=== PATIENT | male | born 1940 | race Two or more races ===

== ENCOUNTER 2016-10-08 16:07 | Emergency (ER) | payer OTHER ==
[~2016-10-08] VITALS: Ht 170.2 cm; Wt 108.9 kg
[2016-10-08 20:15] VITALS: BP 144/65
== END 2016-10-08 21:56 | disposition home or self-care (01) ==
LOC: ER 16:15
DX: T16.2XXA Foreign body in left ear, initial encounter (principal); I10 Essential (primary) hypertension; X58.XXXA Exposure to other specified factors, initial encounter; Y93.89 Activity, other specified; Y99.8 Other external cause status; Y92.89 Other specified places as the place of occurrence of the external cause
CPT/HCPCS: 69200

== ENCOUNTER 2020-01-24 12:52 | Inpatient (IN) | payer OTHER, MEDICAID ==
[~2020-01-24] VITALS: Ht 172.7 cm; Wt 101.0 kg
[2020-01-24] MEDS ORDERED: SODIUM CHLORIDE 0.9% 1,000 ML IV ONE (13:29)
[2020-01-24 14:19] LABS: Basophils # (auto) 0 10 ^3/uL (0-0.2); Basophils % (auto) 0.3 % (0.0-2.0); Eosinophils # (auto) 0 10 ^3/uL (0-0.8); Eosinophils % (auto) 0.5 % (0.0-7.0); Hematocrit 43.8 % (41.0-53.0); Hemoglobin 13.6 g/dL (13.5-17.5); Lymphocytes # (auto) 1.2 10 ^3/uL (0.4-5.4); Lymphocytes % (auto) 17.4 % (10.0-50.0); Mean Corpuscular Volume 99.9 fL (80.0-100.0); Monocytes # (auto) 0.7 10 ^3/uL (0-1.3); Monocytes % (auto) 10.6 % (0.0-12.0); Neutrophils # (auto) 4.9 10 ^3/uL (1.6-8.6); Neutrophils % (auto) 71.2 % (37.0-80.0); Platelet Count (auto) 116 10^3/uL (140-450); Red Blood Cells 4.38 10^6/uL (4.5-5.90); Red Cell Distribution Width 16.6 % (11.8-14.3); White Blood Cell 6.9 10^3/uL (4.4-10.8)
[2020-01-24 14:38] LABS: Albumin 3.7 g/dL (3.4-5.0); Calcium 9.6 mg/dL (8.5-10.1); Potassium 4.2 mmol/L (3.5-5.1)
[2020-01-24 14:43] LABS: BUN/Creatinine Ratio 21.9; Bilirubin, Total 1.4 mg/dL (0.2-1.0); Total Protein 7.1 g/dL (6.4-8.2)
[2020-01-24] MEDS ORDERED: SUCCINYLCHOLINE CHLORIDE 20 MG/ML 10ML VIAL IV ONE (14:50)
[2020-01-24] MEDS ORDERED: ETOMIDATE (2MG/ML) 20ML VIAL IV ONE (14:50)
[2020-01-24] MEDS ORDERED: MIDAZOLAM DRIP 50 mg/50mL 50 ML IV SCH (14:51)
[2020-01-24] MEDS ORDERED: MIDAZOLAM HCL 5 MG/ML-1ML VIAL ONE (14:53)
[2020-01-24] MEDS ORDERED: MIDAZOLAM DRIP 50 mg/50mL 50 ML IV ONE (14:58)
[2020-01-24 15:00] VITALS: BP 138/80
[2020-01-24] MEDS: MIDAZOLAM DRIP 50 mg/50mL 50 ML IV SCH (15:01)
[2020-01-24] MEDS ORDERED: FUROSEMIDE 40 MG/4 ML VIAL IV ONE ×2 (15:15→21:00)
[2020-01-24] MEDS ORDERED: MIDAZOLAM HCL 5 MG/ML-1ML VIAL IV ONE (15:15)
[2020-01-24] MEDS: fentaNYL Drip 2500mCg/250mlNS 250 ML IV SCH (16:31)
[2020-01-24 17:25] LABS: Urine WBC None Seen /hpf (0 - 3)
[2020-01-24] MEDS ORDERED: AMIODARONE HCL 150 MG in D5W 5% 100 ML IV ONE (17:45)
[2020-01-24 17:46] LABS: INR 1.34 (0.9-1.15); Partial Thromboplastin Time 30.5 sec (23.0-31.2)
[2020-01-24] MEDS ORDERED: AMIODARONE 450mg/250ml AE 250 ML IV SCH (17:49)
[2020-01-24 18:21] LABS: Urine Bacteria FEW /hpf (None Seen); Urine Blood 1+ /uL (Negative); Urine Mucus FEW (None Seen); Urine Specific Gravity 1.009 (1.001-1.035)
[2020-01-24 18:53] VITALS: BP 132/83
[2020-01-24] MEDS ORDERED: NOREPINEPHRINE 8 MG/250ML KIT 250 ML IV ONE (18:55)
[2020-01-24 18:59] VITALS: BP 132/83
[2020-01-24] MEDS ORDERED: NITROGLYCERIN 0.4 MG SL TAB SL PRN (19:00)
[2020-01-24] MEDS ORDERED: MORPHINE SULF INJ 2 MG/ML SYRINGE 1ML IV PRN (19:00)
[2020-01-24] MEDS: NOREPINEPHRINE 8 MG/250ML KIT 250 ML IV SCH (19:05)
[2020-01-24] MEDS ORDERED: ACETAMINOPHEN 325 MG TAB PO PRN (21:00)
[2020-01-24] MEDS ORDERED: MORPHINE SULFATE 4 MG/ML SYR/VIAL IV PRN (21:00)
[2020-01-24] MEDS ORDERED: ENOXAPARIN SOD 100 MG/1 ML SYRINGE SC ONE (21:00)
[2020-01-24] MEDS ORDERED: VANCOMYCIN PER PHARMACY 1,000 MG IV SCH (21:00)
[2020-01-24] MEDS ORDERED: VANCOMYCIN 1GM/250ML 250 ML IV ONE (21:15)
[2020-01-24] MEDS ORDERED: ACETAMINOPHEN 500 MG TAB PO PRN (21:15)
[2020-01-24] MEDS: FAMOTIDINE (10MG/ML) 2ML VL IV SCH (22:01)
[2020-01-24 22:27] LABS: Basophils # (auto) 0 10 ^3/uL (0-0.2); Basophils % (auto) 0.3 % (0.0-2.0); Eosinophils # (auto) 0 10 ^3/uL (0-0.8); Eosinophils % (auto) 0.1 % (0.0-7.0); Hematocrit 43.2 % (41.0-53.0); Hemoglobin 13.6 g/dL (13.5-17.5); Lymphocytes # (auto) 0.3 10 ^3/uL (0.4-5.4); Mean Corpuscular Hemoglobin 30.8 pg (28.0-32.0); Mean Corpuscular Hgb Conc. 31.5 g/dL (32.0-36.0); Mean Corpuscular Volume 97.8 fL (80.0-100.0); Monocytes # (auto) 0.7 10 ^3/uL (0-1.3); Monocytes % (auto) 8.1 % (0.0-12.0); Neutrophils # (auto) 7.7 10 ^3/uL (1.6-8.6); Neutrophils % (auto) 88.5 % (37.0-80.0); Platelet Count (auto) 118 10^3/uL (140-450); Red Blood Cells 4.42 10^6/uL (4.5-5.90); Red Cell Distribution Width 16.7 % (11.8-14.3); White Blood Cell 8.7 10^3/uL (4.4-10.8)
[2020-01-24 22:38] LABS: Albumin 2.8 g/dL (3.4-5.0); Calcium 9.2 mg/dL (8.5-10.1); Magnesium 2.2 mg/dL (1.6-2.6); Potassium 4.8 mmol/L (3.5-5.1)
[2020-01-24 22:40] VITALS: BP 100/59
[2020-01-24 22:40] LABS: Lactic Acid w/Reflex 2.8 mmol/L (0.4-2.0)
[2020-01-24 22:42] LABS: Bilirubin, Total 2.6 mg/dL (0.2-1.0); Total Protein 5.8 g/dL (6.4-8.2)
[2020-01-24 22:47] LABS: CRP High Sensitivity 1.43 mg/dL (< 0.3)
[2020-01-24 22:57] LABS: BUN/Creatinine Ratio 18.9
[2020-01-25] VITALS (10 sets, daily range): BP systolic 96–121; BP diastolic 53–68
[2020-01-25] MEDS: HYDROCORTISONE SOD SUCC 100 MG/2ML INJ VIAL IV SCH ×5 (00:29→23:53)
[2020-01-25] MEDS: AMIODARONE 450mg/250ml AE 250 ML IV SCH ×2 (00:30→03:25)
[2020-01-25] MEDS ORDERED: ACETAMINOPHEN 650 mg PER 20 mL UD ONE (00:44)
[2020-01-25] MEDS ORDERED: ACETAMINOPHEN 650 mg PER 20 mL UD GT ONE (01:00)
[2020-01-25] MEDS: PIPERACILLIN-TAZOB 3.375GM 3.375 GM in D5W 5% 100 ML IV SCH ×3 (06:19)
[2020-01-25] MEDS: FUROSEMIDE 40 MG/4 ML VIAL IV SCH ×2 (06:20→18:17)
[2020-01-25 09:12] LABS: Basophils # (auto) 0 10 ^3/uL (0-0.2); Basophils % (auto) 0.1 % (0.0-2.0); Eosinophils # (auto) 0 10 ^3/uL (0-0.8); Hemoglobin 13.3 g/dL (13.5-17.5); Lymphocytes # (auto) 0.8 10 ^3/uL (0.4-5.4); Lymphocytes % (auto) 5.9 % (10.0-50.0); Mean Corpuscular Hemoglobin 30.9 pg (28.0-32.0); Mean Corpuscular Hgb Conc. 31.8 g/dL (32.0-36.0); Mean Corpuscular Volume 97.4 fL (80.0-100.0); Monocytes # (auto) 0.9 10 ^3/uL (0-1.3); Monocytes % (auto) 6.5 % (0.0-12.0); Neutrophils # (auto) 11.7 10 ^3/uL (1.6-8.6); Neutrophils % (auto) 87.5 % (37.0-80.0); Platelet Count (auto) 110 10^3/uL (140-450); Red Blood Cells 4.31 10^6/uL (4.5-5.90); Red Cell Distribution Width 16.1 % (11.8-14.3); White Blood Cell 13.4 10^3/uL (4.4-10.8)
[2020-01-25 09:15] LABS: INR 1.93 (0.9-1.15); Partial Thromboplastin Time 34.7 sec (23.0-31.2)
[2020-01-25 09:24] LABS: Potassium 3.8 mmol/L (3.5-5.1)
[2020-01-25 09:38] LABS: Albumin 2.7 g/dL (3.4-5.0); BUN/Creatinine Ratio 16.5; Bilirubin, Total 3.9 mg/dL (0.2-1.0); CRP High Sensitivity 9.21 mg/dL (< 0.3); Calcium 9.3 mg/dL (8.5-10.1); Phosphorus 1.3 mg/dL (2.5-4.90); Total Protein 5.3 g/dL (6.4-8.2); Uric Acid 5.6 mg/dL (3.5-7.2)
[2020-01-25] MEDS ORDERED: ASCORBIC ACID 1,000 MG TAB PO SCH (10:00)
[2020-01-25] MEDS ORDERED: ZINC SULFATE 220mg CAP or TAB PO SCH (10:00)
[2020-01-25] MEDS ORDERED: CHOLECALCIFEROL (VITD3) 2,000 UNIT CAP PO SCH (10:00)
[2020-01-25] MEDS ORDERED: ENOXAPARIN SOD 120 MG/0.8 ML SYRINGE SC SCH (10:00)
[2020-01-25] MEDS: ENOXAPARIN SOD 120 MG/0.8 ML SYRINGE SC SCH ×2 (10:23→22:02)
[2020-01-25] MEDS: FAMOTIDINE (10MG/ML) 2ML VL IV SCH ×2 (10:23→22:02)
[2020-01-25] MEDS ORDERED: PIPERACILLIN-TAZOB 3.375GM 3.375 GM in D5W 5% 100 ML IV SCH ×4 (12:00)
[2020-01-25] MEDS: MIDAZOLAM DRIP 50 mg/50mL 50 ML IV SCH ×4 (15:15→21:48)
[2020-01-25] MEDS: fentaNYL Drip 2500mCg/250mlNS 250 ML IV SCH (15:58)
[2020-01-25] MEDS ORDERED: VANCOMYCIN 1GM/250ML 250 ML IV SCH (16:00)
[2020-01-25] MEDS: PIPERACILLIN-TAZOB 3.375GM 100 ML IV SCH ×2 (18:17→23:54)
[2020-01-25] MEDS: NOREPINEPHRINE 8 MG/250ML KIT 250 ML IV SCH (18:50)
[2020-01-26] VITALS (12 sets, daily range): BP systolic 88–132; BP diastolic 61–86
[2020-01-26] MEDS: MIDAZOLAM DRIP 50 mg/50mL 50 ML IV SCH ×6 (02:36→22:15)
[2020-01-26] MEDS: NOREPINEPHRINE 8 MG/250ML KIT 250 ML IV SCH (04:32)
[2020-01-26 05:23] LABS: Basophils # (auto) 0 10 ^3/uL (0-0.2); Basophils % (auto) 0.2 % (0.0-2.0); Eosinophils # (auto) 0 10 ^3/uL (0-0.8); Hematocrit 42.7 % (41.0-53.0); Hemoglobin 13.8 g/dL (13.5-17.5); Lymphocytes # (auto) 0.8 10 ^3/uL (0.4-5.4); Lymphocytes % (auto) 4.7 % (10.0-50.0); Mean Corpuscular Hemoglobin 31.1 pg (28.0-32.0); Mean Corpuscular Hgb Conc. 32.3 g/dL (32.0-36.0); Mean Corpuscular Volume 96.5 fL (80.0-100.0); Monocytes % (auto) 5.8 % (0.0-12.0); Neutrophils % (auto) 89.3 % (37.0-80.0); Platelet Count (auto) 119 10^3/uL (140-450); Red Blood Cells 4.42 10^6/uL (4.5-5.90); Red Cell Distribution Width 16.9 % (11.8-14.3); White Blood Cell 16.8 10^3/uL (4.4-10.8)
[2020-01-26 05:33] LABS: BUN/Creatinine Ratio 17.8; Calcium 9.3 mg/dL (8.5-10.1); Magnesium 1.9 mg/dL (1.6-2.6); Potassium 3.3 mmol/L (3.5-5.1)
[2020-01-26] MEDS: PIPERACILLIN-TAZOB 3.375GM 100 ML IV SCH ×3 (05:52→17:34)
[2020-01-26] MEDS: HYDROCORTISONE SOD SUCC 100 MG/2ML INJ VIAL IV SCH ×3 (05:52→17:58)
[2020-01-26] MEDS: FUROSEMIDE 40 MG/4 ML VIAL IV SCH ×3 (05:52→21:43)
[2020-01-26] MEDS: AMIODARONE 450mg/250ml AE 250 ML IV SCH ×2 (06:03→21:42)
[2020-01-26] MEDS: FAMOTIDINE (10MG/ML) 2ML VL IV SCH ×2 (09:05→21:43)
[2020-01-26] MEDS: POTASSIUM CHL 20MEQ/100ML 100 ML IV SCH ×2 (09:05→10:19)
[2020-01-26] MEDS: ENOXAPARIN SOD 120 MG/0.8 ML SYRINGE SC SCH ×2 (09:05→21:43)
[2020-01-26] MEDS: fentaNYL Drip 2500mCg/250mlNS 250 ML IV SCH (10:20)
[2020-01-26] MEDS ORDERED: EPINEPHrine HCL 1 MG/10 ML SYRG IV ONE (13:32)
[2020-01-26] MEDS ORDERED: SODIUM BICARBONATE 8.4% INJ 50ML SYRINGE IV ONE (13:32)
[2020-01-26] MEDS: VANCOMYCIN 1GM/250ML 250 ML IV SCH (16:16)
[2020-01-27] VITALS (105 sets, daily range): BP systolic 82–146; BP diastolic 45–86
[2020-01-27] MEDS: PIPERACILLIN-TAZOB 3.375GM 100 ML IV SCH ×2 (00:21→05:11)
[2020-01-27] MEDS: HYDROCORTISONE SOD SUCC 100 MG/2ML INJ VIAL IV SCH ×4 (00:21→17:36)
[2020-01-27] MEDS: MIDAZOLAM DRIP 50 mg/50mL 50 ML IV SCH ×4 (02:55→20:00)
[2020-01-27 03:22] LABS: Basophils # (auto) 0.1 10 ^3/uL (0-0.2); Basophils % (auto) 0.4 % (0.0-2.0); Eosinophils # (auto) 0 10 ^3/uL (0-0.8); Hematocrit 41.1 % (41.0-53.0); Hemoglobin 13.5 g/dL (13.5-17.5); Lymphocytes # (auto) 0.8 10 ^3/uL (0.4-5.4); Lymphocytes % (auto) 4.7 % (10.0-50.0); Mean Corpuscular Hemoglobin 31.2 pg (28.0-32.0); Mean Corpuscular Hgb Conc. 32.9 g/dL (32.0-36.0); Mean Corpuscular Volume 94.7 fL (80.0-100.0); Monocytes # (auto) 0.7 10 ^3/uL (0-1.3); Monocytes % (auto) 4.3 % (0.0-12.0); Neutrophils # (auto) 15.2 10 ^3/uL (1.6-8.6); Neutrophils % (auto) 90.6 % (37.0-80.0); Platelet Count (auto) 102 10^3/uL (140-450); Red Blood Cells 4.35 10^6/uL (4.5-5.90); White Blood Cell 16.8 10^3/uL (4.4-10.8)
[2020-01-27 03:45] LABS: BUN/Creatinine Ratio 17.1; Calcium 9.1 mg/dL (8.5-10.1); Potassium 3.6 mmol/L (3.5-5.1)
[2020-01-27] MEDS: fentaNYL Drip 2500mCg/250mlNS 250 ML IV SCH (05:10)
[2020-01-27] MEDS: FUROSEMIDE 40 MG/4 ML VIAL IV SCH ×3 (05:13→22:00)
[2020-01-27] MEDS: FAMOTIDINE (10MG/ML) 2ML VL IV SCH (10:06)
[2020-01-27] MEDS: ENOXAPARIN SOD 120 MG/0.8 ML SYRINGE SC SCH (10:06)
[2020-01-27] MEDS: MEROPENEM 1GM IVPB 100 ML IV SCH (11:46)
[2020-01-27] MEDS: AMIODARONE 450mg/250ml AE 250 ML IV SCH (12:06)
[2020-01-27] MEDS: VANCOMYCIN 1GM/250ML 250 ML IV SCH (17:22)
[2020-01-28] VITALS (79 sets, daily range): BP systolic 91–144; BP diastolic 55–84
[2020-01-28] MEDS: fentaNYL Drip 2500mCg/250mlNS 250 ML IV SCH (00:20)
[2020-01-28] MEDS: NOREPINEPHRINE 8 MG/250ML KIT 250 ML IV SCH ×2 (01:00→18:48)
[2020-01-28] MEDS: AMIODARONE 450mg/250ml AE 250 ML IV SCH (02:49)
[2020-01-28 05:25] LABS: Basophils # (auto) 0 10 ^3/uL (0-0.2); Eosinophils # (auto) 0 10 ^3/uL (0-0.8); Eosinophils % (auto) 0.1 % (0.0-7.0); Hematocrit 39.9 % (41.0-53.0); Hemoglobin 12.8 g/dL (13.5-17.5); Lymphocytes # (auto) 0.6 10 ^3/uL (0.4-5.4); Lymphocytes % (auto) 4.7 % (10.0-50.0); Mean Corpuscular Hemoglobin 30.6 pg (28.0-32.0); Mean Corpuscular Hgb Conc. 32.1 g/dL (32.0-36.0); Mean Corpuscular Volume 95.5 fL (80.0-100.0); Monocytes # (auto) 1.1 10 ^3/uL (0-1.3); Monocytes % (auto) 8.6 % (0.0-12.0); Neutrophils # (auto) 10.8 10 ^3/uL (1.6-8.6); Neutrophils % (auto) 86.6 % (37.0-80.0); Nucleated Red Blood Cells % 0.1 %; Platelet Count (auto) 95 10^3/uL (140-450); Red Blood Cells 4.18 10^6/uL (4.5-5.90); Red Cell Distribution Width 17.1 % (11.8-14.3); White Blood Cell 12.5 10^3/uL (4.4-10.8)
[2020-01-28 05:44] LABS: Calcium 8.5 mg/dL (8.5-10.1); Potassium 3.5 mmol/L (3.5-5.1)
[2020-01-28 05:50] LABS: BUN/Creatinine Ratio 18.2; Bilirubin, Total 1.6 mg/dL (0.2-1.0); Total Protein 5.2 g/dL (6.4-8.2)
[2020-01-28] MEDS: HYDROCORTISONE SOD SUCC 100 MG/2ML INJ VIAL IV SCH ×4 (06:13→17:16)
[2020-01-28] MEDS: FUROSEMIDE 40 MG/4 ML VIAL IV SCH ×3 (06:13→22:00)
[2020-01-28] MEDS: FAMOTIDINE (10MG/ML) 2ML VL IV SCH (08:11)
[2020-01-28] MEDS: MEROPENEM 1GM IVPB 100 ML IV SCH ×3 (10:02→22:54)
[2020-01-28] MEDS: VANCOMYCIN 750mg/250ml 250 ML IV SCH (22:00)
[2020-01-29] VITALS (77 sets, daily range): BP systolic 112–151; BP diastolic 47–76
[2020-01-29] MEDS: HYDROCORTISONE SOD SUCC 100 MG/2ML INJ VIAL IV SCH ×4 (00:36→17:09)
[2020-01-29 04:30] LABS: Basophils # (auto) 0 10 ^3/uL (0-0.2); Basophils % (auto) 0.2 % (0.0-2.0); Eosinophils # (auto) 0 10 ^3/uL (0-0.8); Hemoglobin 12.5 g/dL (13.5-17.5); Lymphocytes # (auto) 0.6 10 ^3/uL (0.4-5.4); Lymphocytes % (auto) 5.9 % (10.0-50.0); Mean Corpuscular Hgb Conc. 32.8 g/dL (32.0-36.0); Mean Corpuscular Volume 94.4 fL (80.0-100.0); Monocytes % (auto) 10.9 % (0.0-12.0); Neutrophils # (auto) 7.7 10 ^3/uL (1.6-8.6); Nucleated Red Blood Cells % 0.1 %; Platelet Count (auto) 92 10^3/uL (140-450); Red Blood Cells 4.03 10^6/uL (4.5-5.90); Red Cell Distribution Width 16.6 % (11.8-14.3); White Blood Cell 9.3 10^3/uL (4.4-10.8)
[2020-01-29 04:48] LABS: BUN/Creatinine Ratio 20.4; Calcium 8.2 mg/dL (8.5-10.1); Magnesium 2.1 mg/dL (1.6-2.6); Potassium 3.2 mmol/L (3.5-5.1)
[2020-01-29] MEDS: FUROSEMIDE 40 MG/4 ML VIAL IV SCH (06:00)
[2020-01-29] MEDS ORDERED: POTASSIUM CHL 20MEQ/100ML 100 ML IV ONE (07:52)
[2020-01-29] MEDS: POTASSIUM CHL 20MEQ/100ML 100 ML IV SCH ×2 (08:01→10:12)
[2020-01-29] MEDS: FAMOTIDINE (10MG/ML) 2ML VL IV SCH (09:17)
[2020-01-29] MEDS: MEROPENEM 1GM IVPB 100 ML IV SCH ×2 (11:28→23:48)
[2020-01-29] MEDS: ALBUMIN 25% 100 ML IV SCH ×2 (12:24→13:20)
[2020-01-29] MEDS: MIDAZOLAM DRIP 50 mg/50mL 50 ML IV SCH (15:12)
[2020-01-29] MEDS: fentaNYL Drip 2500mCg/250mlNS 250 ML IV SCH (15:58)
[2020-01-29] MEDS: NOREPINEPHRINE 8 MG/250ML KIT 250 ML IV SCH (18:48)
[2020-01-29] MEDS: VANCOMYCIN 750mg/250ml 250 ML IV SCH (22:08)
[2020-01-30] VITALS (73 sets, daily range): BP systolic 103–139; BP diastolic 43–72
[2020-01-30] MEDS: HYDROCORTISONE SOD SUCC 100 MG/2ML INJ VIAL IV SCH ×3 (01:17→11:38)
[2020-01-30 03:47] LABS: Basophils # (auto) 0 10 ^3/uL (0-0.2); Basophils % (auto) 0.1 % (0.0-2.0); Eosinophils # (auto) 0 10 ^3/uL (0-0.8); Eosinophils % (auto) 0.1 % (0.0-7.0); Hematocrit 30.2 % (41.0-53.0); Hemoglobin 10.2 g/dL (13.5-17.5); Lymphocytes # (auto) 0.4 10 ^3/uL (0.4-5.4); Lymphocytes % (auto) 5.7 % (10.0-50.0); Mean Corpuscular Hemoglobin 31.8 pg (28.0-32.0); Mean Corpuscular Hgb Conc. 33.8 g/dL (32.0-36.0); Mean Corpuscular Volume 94.1 fL (80.0-100.0); Monocytes # (auto) 0.9 10 ^3/uL (0-1.3); Monocytes % (auto) 13.8 % (0.0-12.0); Neutrophils # (auto) 5.4 10 ^3/uL (1.6-8.6); Neutrophils % (auto) 80.3 % (37.0-80.0); Platelet Count (auto) 68 10^3/uL (140-450); Red Blood Cells 3.21 10^6/uL (4.5-5.90); Red Cell Distribution Width 16.3 % (11.8-14.3); White Blood Cell 6.8 10^3/uL (4.4-10.8)
[2020-01-30 04:09] LABS: BUN/Creatinine Ratio 21.4; Calcium 8.2 mg/dL (8.5-10.1); Magnesium 2.1 mg/dL (1.6-2.6); Potassium 3.5 mmol/L (3.5-5.1)
[2020-01-30] MEDS: FAMOTIDINE (10MG/ML) 2ML VL IV SCH (09:26)
[2020-01-30] MEDS: MEROPENEM 500MG IVPB 50 ML IV SCH ×2 (11:22→23:00)
[2020-01-30] MEDS: SODIUM CHLORIDE 0.9% 1,000 ML IV SCH ×2 (11:37→23:47)
[2020-01-30] MEDS: DOXYCYCLINE 100MG/250ML 250 ML IV SCH (12:00)
[2020-01-30] MEDS ORDERED: Nepro With Carb Steady 1 Liter Bottle GT SCH (14:00)
[2020-01-30] MEDS: MIDAZOLAM DRIP 50 mg/50mL 50 ML IV SCH (15:12)
[2020-01-30] MEDS: fentaNYL Drip 2500mCg/250mlNS 250 ML IV SCH (15:58)
[2020-01-30] MEDS: NOREPINEPHRINE 8 MG/250ML KIT 250 ML IV SCH (18:48)
[2020-01-31] VITALS (67 sets, daily range): BP systolic 109–166; BP diastolic 56–88
[2020-01-31 04:19] LABS: Potassium 3.1 mmol/L (3.5-5.1)
[2020-01-31 04:20] LABS: BUN/Creatinine Ratio 23.9; Calcium 8.1 mg/dL (8.5-10.1)
[2020-01-31] MEDS ORDERED: POTASSIUM CHL 20MEQ/100ML 100 ML IV ONE (08:30)
[2020-01-31] MEDS: HYDROCORTISONE SOD SUCC 100 MG/2ML INJ VIAL IV SCH (09:56)
[2020-01-31] MEDS: FAMOTIDINE (10MG/ML) 2ML VL IV SCH (09:56)
[2020-01-31] MEDS ORDERED: Glucerna 1.2 Cal 1Liter BOTTLE GT SCH (11:45)
[2020-01-31] MEDS: DOXYCYCLINE 100MG/250ML 250 ML IV SCH ×3 (12:00→14:00)
[2020-01-31] MEDS: SODIUM CHLORIDE 0.9% 1,000 ML IV SCH (12:15)
[2020-01-31] MEDS: MEROPENEM 500MG IVPB 50 ML IV SCH ×2 (12:32→23:00)
[2020-01-31] MEDS: MIDAZOLAM DRIP 50 mg/50mL 50 ML IV SCH ×2 (13:11→15:12)
[2020-01-31 14:55] LABS: Basophils # (auto) 0 10 ^3/uL (0-0.2); Basophils % (auto) 0.1 % (0.0-2.0); Eosinophils # (auto) 0 10 ^3/uL (0-0.8); Eosinophils % (auto) 0.1 % (0.0-7.0); Hematocrit 39.4 % (41.0-53.0); Hemoglobin 12.8 g/dL (13.5-17.5); Lymphocytes # (auto) 0.5 10 ^3/uL (0.4-5.4); Lymphocytes % (auto) 5.6 % (10.0-50.0); Mean Corpuscular Hemoglobin 30.5 pg (28.0-32.0); Mean Corpuscular Hgb Conc. 32.4 g/dL (32.0-36.0); Mean Corpuscular Volume 94.2 fL (80.0-100.0); Monocytes % (auto) 10.5 % (0.0-12.0); Neutrophils # (auto) 8.1 10 ^3/uL (1.6-8.6); Neutrophils % (auto) 83.7 % (37.0-80.0); Platelet Count (auto) 108 10^3/uL (140-450); Red Blood Cells 4.18 10^6/uL (4.5-5.90); Red Cell Distribution Width 16.2 % (11.8-14.3); White Blood Cell 9.7 10^3/uL (4.4-10.8)
[2020-01-31] MEDS: fentaNYL Drip 2500mCg/250mlNS 250 ML IV SCH (15:58)
[2020-02-01] VITALS (46 sets, daily range): BP systolic 107–168; BP diastolic 55–92
[2020-02-01] MEDS: SODIUM CHLORIDE 0.9% 1,000 ML IV SCH ×2 (00:45→13:15)
[2020-02-01] MEDS: DOXYCYCLINE 100MG/250ML 250 ML IV SCH ×2 (02:05→14:00)
[2020-02-01 04:10] LABS: Basophils # (auto) 0 10 ^3/uL (0-0.2); Basophils % (auto) 0.1 % (0.0-2.0); Eosinophils # (auto) 0.1 10 ^3/uL (0-0.8); Eosinophils % (auto) 1.3 % (0.0-7.0); Hematocrit 36.9 % (41.0-53.0); Hemoglobin 12.3 g/dL (13.5-17.5); Lymphocytes # (auto) 0.7 10 ^3/uL (0.4-5.4); Mean Corpuscular Hemoglobin 31.4 pg (28.0-32.0); Mean Corpuscular Hgb Conc. 33.3 g/dL (32.0-36.0); Mean Corpuscular Volume 94.3 fL (80.0-100.0); Monocytes % (auto) 10.6 % (0.0-12.0); Neutrophils # (auto) 7.4 10 ^3/uL (1.6-8.6); Platelet Count (auto) 103 10^3/uL (140-450); Red Blood Cells 3.92 10^6/uL (4.5-5.90); Red Cell Distribution Width 16.7 % (11.8-14.3); White Blood Cell 9.3 10^3/uL (4.4-10.8)
[2020-02-01 04:26] LABS: BUN/Creatinine Ratio 24.2; Calcium 7.9 mg/dL (8.5-10.1); Magnesium 2.4 mg/dL (1.6-2.6)
[2020-02-01] MEDS: HYDROCORTISONE SOD SUCC 100 MG/2ML INJ VIAL IV SCH (10:00)
[2020-02-01] MEDS: ENOXAPARIN SOD 100 MG/1 ML SYRINGE SC SCH (10:00)
[2020-02-01] MEDS: FAMOTIDINE (10MG/ML) 2ML VL IV SCH (10:00)
[2020-02-01] MEDS ORDERED: POTASSIUM CHL 20MEQ/100ML 100 ML IV ONE (10:30)
[2020-02-01] MEDS: MEROPENEM 500MG IVPB 50 ML IV SCH ×2 (11:00→23:24)
[2020-02-01] MEDS: LORazepam 2MG/ML-1ML VIAL IV PRN (16:24)
[2020-02-02] VITALS (61 sets, daily range): BP systolic 119–177; BP diastolic 64–111
[2020-02-02] MEDS: SODIUM CHLORIDE 0.9% 1,000 ML IV SCH ×2 (01:45→12:13)
[2020-02-02] MEDS: DOXYCYCLINE 100MG/250ML 250 ML IV SCH ×2 (02:12→14:21)
[2020-02-02 04:33] LABS: Basophils # (auto) 0 10 ^3/uL (0-0.2); Basophils % (auto) 0.1 % (0.0-2.0); Eosinophils # (auto) 0 10 ^3/uL (0-0.8); Hematocrit 39.1 % (41.0-53.0); Hemoglobin 12.6 g/dL (13.5-17.5); Lymphocytes # (auto) 0.8 10 ^3/uL (0.4-5.4); Lymphocytes % (auto) 5.6 % (10.0-50.0); Mean Corpuscular Hemoglobin 30.6 pg (28.0-32.0); Mean Corpuscular Hgb Conc. 32.2 g/dL (32.0-36.0); Mean Corpuscular Volume 94.9 fL (80.0-100.0); Monocytes # (auto) 1.3 10 ^3/uL (0-1.3); Monocytes % (auto) 8.5 % (0.0-12.0); Neutrophils # (auto) 12.8 10 ^3/uL (1.6-8.6); Neutrophils % (auto) 85.8 % (37.0-80.0); Nucleated Red Blood Cells % 0.1 %; Platelet Count (auto) 128 10^3/uL (140-450); Red Blood Cells 4.12 10^6/uL (4.5-5.90); Red Cell Distribution Width 16.7 % (11.8-14.3); White Blood Cell 14.9 10^3/uL (4.4-10.8)
[2020-02-02 04:52] LABS: Calcium 8.3 mg/dL (8.5-10.1); Magnesium 2.3 mg/dL (1.6-2.6); Potassium 3.3 mmol/L (3.5-5.1)
[2020-02-02 04:53] LABS: BUN/Creatinine Ratio 24.5
[2020-02-02] MEDS: NOREPINEPHRINE 8 MG/250ML KIT 250 ML IV SCH ×3 (08:57→18:15)
[2020-02-02] MEDS: MIDAZOLAM DRIP 50 mg/50mL 50 ML IV SCH ×2 (08:58→14:26)
[2020-02-02] MEDS: fentaNYL Drip 2500mCg/250mlNS 250 ML IV SCH ×2 (08:59→14:27)
[2020-02-02] MEDS: ENOXAPARIN SOD 100 MG/1 ML SYRINGE SC SCH (10:43)
[2020-02-02] MEDS: FAMOTIDINE (10MG/ML) 2ML VL IV SCH (10:43)
[2020-02-02] MEDS ORDERED: AMIODARONE HCL 150 MG in D5W 5% 100 ML IV ONE (10:45)
[2020-02-02] MEDS ORDERED: POTASSIUM CHL 20MEQ/100ML 100 ML IV ONE (10:45)
[2020-02-02] MEDS ORDERED: AMIODARONE 450mg/250ml AE 250 ML IV SCH (10:46)
[2020-02-02] MEDS: MEROPENEM 500MG IVPB 50 ML IV SCH ×2 (11:14→23:17)
[2020-02-02] MEDS: AMIODARONE 450mg/250ml AE 250 ML IV SCH (18:15)
[2020-02-02] MEDS ORDERED: DOXYCYCLINE 100MG/250ML 250 ML IV ONE (23:22)
[2020-02-03] VITALS (80 sets, daily range): BP systolic 102–151; BP diastolic 47–93
[2020-02-03] MEDS: DOXYCYCLINE 100MG/250ML 250 ML IV SCH ×2 (02:20→13:40)
[2020-02-03 04:37] LABS: BUN/Creatinine Ratio 24.4; Calcium 8.2 mg/dL (8.5-10.1); Potassium 3.5 mmol/L (3.5-5.1)
[2020-02-03] MEDS: AMIODARONE 450mg/250ml AE 250 ML IV SCH ×2 (09:43→22:46)
[2020-02-03] MEDS: FAMOTIDINE (10MG/ML) 2ML VL IV SCH (09:43)
[2020-02-03] MEDS: SODIUM CHLORIDE 0.9% 1,000 ML IV SCH ×3 (09:43→16:06)
[2020-02-03] MEDS: ENOXAPARIN SOD 100 MG/1 ML SYRINGE SC SCH (10:00)
[2020-02-03] MEDS: MEROPENEM 500MG IVPB 50 ML IV SCH ×2 (11:00→22:26)
[2020-02-03] MEDS: fentaNYL Drip 2500mCg/250mlNS 250 ML IV SCH (15:09)
[2020-02-03] MEDS: MIDAZOLAM DRIP 50 mg/50mL 50 ML IV SCH (15:12)
[2020-02-03] MEDS ORDERED: SODIUM CHL 0.9% 1000 ML BAG XX ONE (15:45)
[2020-02-03] MEDS ORDERED: MIDAZOLAM HCL 1MG/1ML-2 ML VIAL ONE (16:25)
[2020-02-03] MEDS ORDERED: MIDAZOLAM HCL 1MG/1ML-2 ML VIAL IV ONE (16:30)
[2020-02-03] MEDS: NOREPINEPHRINE 8 MG/250ML KIT 250 ML IV SCH (18:31)
[2020-02-04] VITALS (107 sets, daily range): BP systolic 91–149; BP diastolic 32–79
[2020-02-04] MEDS: DOXYCYCLINE 100MG/250ML 250 ML IV SCH ×2 (02:00→14:06)
[2020-02-04 05:24] LABS: BUN/Creatinine Ratio 23.4; Calcium 8.2 mg/dL (8.5-10.1); Potassium 3.7 mmol/L (3.5-5.1)
[2020-02-04] MEDS: FAMOTIDINE (10MG/ML) 2ML VL IV SCH (10:39)
[2020-02-04] MEDS: ENOXAPARIN SOD 100 MG/1 ML SYRINGE SC SCH (10:40)
[2020-02-04] MEDS: MEROPENEM 500MG IVPB 50 ML IV SCH ×2 (10:40→23:02)
[2020-02-04] MEDS: AMIODARONE 450mg/250ml AE 250 ML IV SCH (14:06)
[2020-02-04 14:53] LABS: INR 1.31 (0.9-1.15); Partial Thromboplastin Time 36.3 sec (23.0-31.2)
[2020-02-04] MEDS: MIDAZOLAM DRIP 50 mg/50mL 50 ML IV SCH (15:12)
[2020-02-04] MEDS: fentaNYL Drip 2500mCg/250mlNS 250 ML IV SCH (15:27)
[2020-02-04] MEDS ORDERED: NALOXONE HCL 0.4 MG/ML VIAL ONE (15:34)
[2020-02-04] MEDS ORDERED: FLUMAZENIL 0.1 MG/ML INJ 10ML MDV IV ONE (15:34)
[2020-02-04] MEDS ORDERED: LIDOCAINE 2%HCL (LOCAL ANESTH.) INJ 20ML MDV ONE (15:34)
[2020-02-04] MEDS ORDERED: MIDAZOLAM HCL 5 MG/ML-1ML VIAL ONE (15:35)
[2020-02-04] MEDS ORDERED: EPINEPHrine HCL 1 MG/1 ML AMP ONE (15:35)
[2020-02-04] MEDS ORDERED: LIDOCAINE HCL 2% TOP JELLY 5ML TOP ONE (15:35)
[2020-02-04] MEDS ORDERED: SODIUM CHLORIDE LOCK 40 ML ONE (15:35)
[2020-02-04] MEDS ORDERED: diphenhdrAMINE HCL 50 MG/1 ML VL ONE (15:36)
[2020-02-04] MEDS ORDERED: fentaNYL CITRATE 100 MCG/2 ML VL ONE (15:36)
[2020-02-04] MEDS ORDERED: GLYCOPYRROLATE 0.2 MG/ML 1ML VIAL ONE (15:36)
[2020-02-04] MEDS ORDERED: ACETYLCYSTEINE 10 %(100MG/ML) SOL 4ML NEB ONE (15:45)
[2020-02-04] MEDS: SODIUM CHLORIDE 0.9% 1,000 ML IV SCH (16:00)
[2020-02-04] MEDS ORDERED: ACETYLCYSTEINE 20%(200MG/ML) SOL 4ML ONE (16:02)
[2020-02-04] MEDS: NOREPINEPHRINE 8 MG/250ML KIT 250 ML IV SCH (18:07)
[2020-02-05] VITALS (92 sets, daily range): BP systolic 99–152; BP diastolic 52–90
[2020-02-05] MEDS: DOXYCYCLINE 100MG/250ML 250 ML IV SCH ×2 (01:55→14:50)
[2020-02-05 04:20] LABS: Basophils # (auto) 0 10 ^3/uL (0-0.2); Basophils % (auto) 0.1 % (0.0-2.0); Eosinophils # (auto) 0.1 10 ^3/uL (0-0.8); Eosinophils % (auto) 0.9 % (0.0-7.0); Hematocrit 29.4 % (41.0-53.0); Hemoglobin 9.4 g/dL (13.5-17.5); Lymphocytes # (auto) 0.9 10 ^3/uL (0.4-5.4); Lymphocytes % (auto) 6.2 % (10.0-50.0); Mean Corpuscular Hemoglobin 30.7 pg (28.0-32.0); Mean Corpuscular Volume 95.8 fL (80.0-100.0); Monocytes # (auto) 1.5 10 ^3/uL (0-1.3); Monocytes % (auto) 10.2 % (0.0-12.0); Neutrophils # (auto) 11.7 10 ^3/uL (1.6-8.6); Neutrophils % (auto) 82.6 % (37.0-80.0); Platelet Count (auto) 114 10^3/uL (140-450); Red Blood Cells 3.07 10^6/uL (4.5-5.90); Red Cell Distribution Width 16.3 % (11.8-14.3); White Blood Cell 14.2 10^3/uL (4.4-10.8)
[2020-02-05 04:40] LABS: BUN/Creatinine Ratio 26.1; Calcium 8.3 mg/dL (8.5-10.1); Magnesium 2.1 mg/dL (1.6-2.6); Potassium 3.5 mmol/L (3.5-5.1)
[2020-02-05] MEDS ORDERED: SODIUM CHL 0.9% 1000 ML BAG XX ONE (06:30)
[2020-02-05] MEDS: AMIODARONE 450mg/250ml AE 250 ML IV SCH ×2 (06:35→21:06)
[2020-02-05] MEDS ORDERED: HEPARIN SODIUM (PORCINE) 5000 UNITS/ML 1ML VIAL ONE (06:40)
[2020-02-05] MEDS ORDERED: HEPARIN 1,000 UNITS/ml 1ML VIAL ONE (06:44)
[2020-02-05] MEDS: MEROPENEM 500MG IVPB 50 ML IV SCH ×2 (10:16→22:45)
[2020-02-05] MEDS: FAMOTIDINE (10MG/ML) 2ML VL IV SCH (10:17)
[2020-02-05] MEDS: D5W/SOD CHL 0.45% 1,000 ML IV SCH (10:18)
[2020-02-05] MEDS ORDERED: EPINEPHrine HCL 0.5 ML NEB ONE (12:12)
[2020-02-05] MEDS ORDERED: methylPREDNISolone SOD SUCC 40 MG/ML VL ONE (12:18)
[2020-02-05] MEDS ORDERED: DexAMETHasone SOD PHOS 4 MG/1ML SDV INJ ONE (12:45)
[2020-02-05] MEDS: LORazepam 2MG/ML-1ML VIAL IV PRN ×2 (14:30→18:37)
[2020-02-05] MEDS ORDERED: DexAMETHasone SOD PHOS 10MG/1ML VIAL INJ IV ONE (14:30)
[2020-02-05] MEDS ORDERED: EPINEPHrine HCL 0.5 ML NEB NEB ONE (14:30)
[2020-02-05] MEDS ORDERED: methylPREDNISolone SOD SUCC 40 MG/ML VL IV ONE (14:30)
[2020-02-05] MEDS: MIDAZOLAM DRIP 50 mg/50mL 50 ML IV SCH (14:48)
[2020-02-05] MEDS: fentaNYL Drip 2500mCg/250mlNS 250 ML IV SCH (15:58)
[2020-02-05] MEDS: NOREPINEPHRINE 8 MG/250ML KIT 250 ML IV SCH (18:08)
[2020-02-05] MEDS ORDERED: EPOETIN ALFA 4,000 UNIT/ML VL SC ONE (21:00)
[2020-02-06] VITALS (50 sets, daily range): BP systolic 93–143; BP diastolic 49–81
[2020-02-06] MEDS: DOXYCYCLINE 100MG/250ML 250 ML IV SCH ×2 (02:19→14:00)
[2020-02-06] MEDS: D5W/SOD CHL 0.45% 1,000 ML IV SCH ×2 (04:15→14:17)
[2020-02-06 06:10] LABS: Basophils # (auto) 0 10 ^3/uL (0-0.2); Basophils % (auto) 0.1 % (0.0-2.0); Eosinophils # (auto) 0 10 ^3/uL (0-0.8); Hematocrit 29.7 % (41.0-53.0); Hemoglobin 9.6 g/dL (13.5-17.5); Lymphocytes # (auto) 0.5 10 ^3/uL (0.4-5.4); Lymphocytes % (auto) 4.3 % (10.0-50.0); Mean Corpuscular Hgb Conc. 32.1 g/dL (32.0-36.0); Mean Corpuscular Volume 96.7 fL (80.0-100.0); Monocytes % (auto) 8.3 % (0.0-12.0); Neutrophils # (auto) 10.5 10 ^3/uL (1.6-8.6); Neutrophils % (auto) 87.3 % (37.0-80.0); Platelet Count (auto) 119 10^3/uL (140-450); Red Blood Cells 3.08 10^6/uL (4.5-5.90); Red Cell Distribution Width 16.5 % (11.8-14.3); White Blood Cell 12.1 10^3/uL (4.4-10.8)
[2020-02-06 06:27] LABS: BUN/Creatinine Ratio 25.1; Calcium 8.4 mg/dL (8.5-10.1); Magnesium 2.3 mg/dL (1.6-2.6); Potassium 4.4 mmol/L (3.5-5.1)
[2020-02-06] MEDS: AMIODARONE 450mg/250ml AE 250 ML IV SCH (12:10)
[2020-02-06] MEDS: FAMOTIDINE (10MG/ML) 2ML VL IV SCH (12:10)
[2020-02-06] MEDS: MEROPENEM 500MG IVPB 50 ML IV SCH ×2 (12:11→22:43)
[2020-02-06] MEDS: MIDAZOLAM DRIP 50 mg/50mL 50 ML IV SCH (15:12)
[2020-02-06] MEDS: NOREPINEPHRINE 8 MG/250ML KIT 250 ML IV SCH (18:33)
[2020-02-06 21:20] LABS: Albumin 2.7 g/dL (3.4-5.0)
[2020-02-06 21:24] LABS: Bilirubin, Direct 1.1 mg/dL (0-0.2); Bilirubin, Total 1.8 mg/dL (0.2-1.0); Total Protein 5.5 g/dL (6.4-8.2)
[2020-02-06] MEDS: LORazepam 2MG/ML-1ML VIAL IV PRN (21:40)
[2020-02-07] VITALS (40 sets, daily range): BP systolic 89–141; BP diastolic 46–90
[2020-02-07] MEDS: ALBUTEROL SULF 2.5 MG/0.5ML(0.5%) NEB SOLN NEB PRN ×3 (00:18→12:20)
[2020-02-07] MEDS: IPRATROPIUM BROM 0.5 MG/2.5ML INH SOL NEB PRN ×3 (00:18→12:20)
[2020-02-07] MEDS: DOXYCYCLINE 100MG/250ML 250 ML IV SCH ×2 (01:33→13:28)
[2020-02-07] MEDS: AMIODARONE 450mg/250ml AE 250 ML IV SCH ×2 (02:33→16:46)
[2020-02-07] MEDS: D5W/SOD CHL 0.45% 1,000 ML IV SCH ×2 (02:33→20:22)
[2020-02-07 05:28] LABS: Basophils # (auto) 0 10 ^3/uL (0-0.2); Eosinophils # (auto) 0.1 10 ^3/uL (0-0.8); Eosinophils % (auto) 0.4 % (0.0-7.0); Hematocrit 30.3 % (41.0-53.0); Hemoglobin 9.8 g/dL (13.5-17.5); Lymphocytes # (auto) 1.5 10 ^3/uL (0.4-5.4); Lymphocytes % (auto) 7.4 % (10.0-50.0); Mean Corpuscular Hemoglobin 31.5 pg (28.0-32.0); Mean Corpuscular Hgb Conc. 32.3 g/dL (32.0-36.0); Mean Corpuscular Volume 97.7 fL (80.0-100.0); Monocytes # (auto) 2.6 10 ^3/uL (0-1.3); Monocytes % (auto) 12.9 % (0.0-12.0); Neutrophils # (auto) 16.2 10 ^3/uL (1.6-8.6); Neutrophils % (auto) 79.3 % (37.0-80.0); Platelet Count (auto) 171 10^3/uL (140-450); Red Cell Distribution Width 16.7 % (11.8-14.3); White Blood Cell 20.4 10^3/uL (4.4-10.8)
[2020-02-07 05:49] LABS: Albumin 2.8 g/dL (3.4-5.0); BUN/Creatinine Ratio 25.7; Calcium 8.7 mg/dL (8.5-10.1); Magnesium 2.3 mg/dL (1.6-2.6); Potassium 4.1 mmol/L (3.5-5.1)
[2020-02-07 05:52] LABS: Bilirubin, Total 1.8 mg/dL (0.2-1.0); Total Protein 5.8 g/dL (6.4-8.2)
[2020-02-07 05:58] LABS: INR 1.34 (0.9-1.15); Partial Thromboplastin Time 31.1 sec (23.0-31.2)
[2020-02-07] MEDS: MEROPENEM 500MG IVPB 50 ML IV SCH ×2 (10:04→23:00)
[2020-02-07] MEDS: FAMOTIDINE (10MG/ML) 2ML VL IV SCH (10:04)
[2020-02-07] MEDS: NOREPINEPHRINE 8 MG/250ML KIT 250 ML IV SCH (12:19)
[2020-02-07] MEDS: MIDAZOLAM DRIP 50 mg/50mL 50 ML IV SCH (15:12)
[2020-02-07] MEDS ORDERED: FUROSEMIDE 20 MG/2 ML VIAL IV ONE (16:00)
[2020-02-07] MEDS ORDERED: SODIUM CHL 0.9% 1000 ML BAG XX ONE (18:00)
[2020-02-07] MEDS: ALBUTEROL SULF 2.5 MG/0.5ML(0.5%) NEB SOLN NEB SCH ×2 (18:20→22:19)
[2020-02-07] MEDS: IPRATROPIUM BROM 0.5 MG/2.5ML INH SOL NEB SCH ×2 (18:20→22:19)
[2020-02-08] VITALS (48 sets, daily range): BP systolic 102–151; BP diastolic 50–82
[2020-02-08] MEDS: DOXYCYCLINE 100MG/250ML 250 ML IV SCH (02:00)
[2020-02-08 04:11] LABS: Basophils # (auto) 0 10 ^3/uL (0-0.2); Basophils % (auto) 0.2 % (0.0-2.0); Eosinophils # (auto) 0 10 ^3/uL (0-0.8); Eosinophils % (auto) 0.2 % (0.0-7.0); Hematocrit 29.7 % (41.0-53.0); Hemoglobin 9.6 g/dL (13.5-17.5); Lymphocytes # (auto) 0.9 10 ^3/uL (0.4-5.4); Lymphocytes % (auto) 5.1 % (10.0-50.0); Mean Corpuscular Hemoglobin 31.3 pg (28.0-32.0); Mean Corpuscular Hgb Conc. 32.2 g/dL (32.0-36.0); Mean Corpuscular Volume 97.2 fL (80.0-100.0); Monocytes # (auto) 1.8 10 ^3/uL (0-1.3); Monocytes % (auto) 10.4 % (0.0-12.0); Neutrophils # (auto) 14.7 10 ^3/uL (1.6-8.6); Neutrophils % (auto) 84.1 % (37.0-80.0); Platelet Count (auto) 162 10^3/uL (140-450); Red Blood Cells 3.06 10^6/uL (4.5-5.90); Red Cell Distribution Width 16.4 % (11.8-14.3); White Blood Cell 17.5 10^3/uL (4.4-10.8)
[2020-02-08 04:30] LABS: Potassium 3.8 mmol/L (3.5-5.1)
[2020-02-08 04:34] LABS: BUN/Creatinine Ratio 22.7; Calcium 8.5 mg/dL (8.5-10.1); Magnesium 2.1 mg/dL (1.6-2.6)
[2020-02-08] MEDS: AMIODARONE 450mg/250ml AE 250 ML IV SCH ×2 (06:00→22:15)
[2020-02-08] MEDS: IPRATROPIUM BROM 0.5 MG/2.5ML INH SOL NEB SCH ×5 (06:06→23:03)
[2020-02-08] MEDS: ALBUTEROL SULF 2.5 MG/0.5ML(0.5%) NEB SOLN NEB SCH ×5 (06:06→23:03)
[2020-02-08] MEDS ORDERED: SODIUM CHL 0.9% 1000 ML BAG XX ONE (07:00)
[2020-02-08] MEDS: FAMOTIDINE (10MG/ML) 2ML VL IV SCH (10:33)
[2020-02-08] MEDS: MEROPENEM 500MG IVPB 50 ML IV SCH (10:34)
[2020-02-08 12:39] LABS: Hepatitis B Surface Antibody Negative
[2020-02-08 13:47] LABS: Hepatitis B Surface Antigen Negative (Negative); Hepatitis C Antibody Negative (Negative)
[2020-02-08 14:13] LABS: Hepatitis A Ab IgM Negative; Hepatitis B Core IgM Negative; Hepatitis B Surface Antigen Negative (Negative); Hepatitis C Antibody Negative (Negative)
[2020-02-08] MEDS: MIDAZOLAM DRIP 50 mg/50mL 50 ML IV SCH (16:44)
[2020-02-08] MEDS: LINEZOLID 600MG/300ML 300 ML IV SCH (16:48)
[2020-02-08] MEDS: D5W/SOD CHL 0.45% 1,000 ML IV SCH (16:55)
[2020-02-08] MEDS: NOREPINEPHRINE 8 MG/250ML KIT 250 ML IV SCH (17:59)
[2020-02-08] MEDS ORDERED: MEROPENEM 1GM IVPB 100 ML IV SCH (22:00)
[2020-02-09] VITALS (67 sets, daily range): BP systolic 100–155; BP diastolic 46–76
[2020-02-09 03:58] LABS: Basophils # (auto) 0 10 ^3/uL (0-0.2); Basophils % (auto) 0.2 % (0.0-2.0); Eosinophils # (auto) 0.1 10 ^3/uL (0-0.8); Eosinophils % (auto) 0.5 % (0.0-7.0); Hematocrit 27.8 % (41.0-53.0); Hemoglobin 9.2 g/dL (13.5-17.5); Lymphocytes # (auto) 0.9 10 ^3/uL (0.4-5.4); Lymphocytes % (auto) 6.5 % (10.0-50.0); Mean Corpuscular Hemoglobin 31.9 pg (28.0-32.0); Mean Corpuscular Hgb Conc. 33.1 g/dL (32.0-36.0); Mean Corpuscular Volume 96.1 fL (80.0-100.0); Monocytes # (auto) 1.7 10 ^3/uL (0-1.3); Monocytes % (auto) 11.3 % (0.0-12.0); Neutrophils # (auto) 11.9 10 ^3/uL (1.6-8.6); Neutrophils % (auto) 81.5 % (37.0-80.0); Platelet Count (auto) 119 10^3/uL (140-450); Red Blood Cells 2.89 10^6/uL (4.5-5.90); Red Cell Distribution Width 16.4 % (11.8-14.3); White Blood Cell 14.6 10^3/uL (4.4-10.8)
[2020-02-09 04:08] LABS: BUN/Creatinine Ratio 19.2; Calcium 8.2 mg/dL (8.5-10.1); Potassium 3.7 mmol/L (3.5-5.1)
[2020-02-09] MEDS: LINEZOLID 600MG/300ML 300 ML IV SCH ×2 (04:32→16:03)
[2020-02-09] MEDS: ALBUTEROL SULF 2.5 MG/0.5ML(0.5%) NEB SOLN NEB SCH ×5 (07:17→22:42)
[2020-02-09] MEDS: IPRATROPIUM BROM 0.5 MG/2.5ML INH SOL NEB SCH ×5 (07:17→22:42)
[2020-02-09] MEDS: FAMOTIDINE (10MG/ML) 2ML VL IV SCH (10:53)
[2020-02-09] MEDS: D5W/SOD CHL 0.45% 1,000 ML IV SCH (10:53)
[2020-02-09] MEDS: MIDAZOLAM DRIP 50 mg/50mL 50 ML IV SCH (15:12)
[2020-02-09] MEDS: AMIODARONE 450mg/250ml AE 250 ML IV SCH (15:51)
[2020-02-09] MEDS: FUROSEMIDE 100 MG/10ML VIAL IV SCH (20:03)
[2020-02-10] VITALS (13 sets, daily range): BP systolic 104–138; BP diastolic 44–77
[2020-02-10 03:22] LABS: Basophils # (auto) 0 10 ^3/uL (0-0.2); Basophils % (auto) 0.2 % (0.0-2.0); Eosinophils # (auto) 0 10 ^3/uL (0-0.8); Eosinophils % (auto) 0.1 % (0.0-7.0); Hematocrit 29.6 % (41.0-53.0); Hemoglobin 9.5 g/dL (13.5-17.5); Lymphocytes # (auto) 0.7 10 ^3/uL (0.4-5.4); Lymphocytes % (auto) 3.7 % (10.0-50.0); Mean Corpuscular Hemoglobin 31.1 pg (28.0-32.0); Mean Corpuscular Volume 97.1 fL (80.0-100.0); Monocytes # (auto) 1.8 10 ^3/uL (0-1.3); Monocytes % (auto) 9.4 % (0.0-12.0); Neutrophils # (auto) 16.5 10 ^3/uL (1.6-8.6); Neutrophils % (auto) 86.6 % (37.0-80.0); Platelet Count (auto) 136 10^3/uL (140-450); Red Blood Cells 3.04 10^6/uL (4.5-5.90); Red Cell Distribution Width 15.9 % (11.8-14.3)
[2020-02-10 03:39] LABS: Calcium 8.6 mg/dL (8.5-10.1); Potassium 3.7 mmol/L (3.5-5.1)
[2020-02-10 03:41] LABS: BUN/Creatinine Ratio 17.3
[2020-02-10] MEDS: AMIODARONE 450mg/250ml AE 250 ML IV SCH ×2 (04:05→17:10)
[2020-02-10] MEDS: LINEZOLID 600MG/300ML 300 ML IV SCH ×2 (04:05→15:10)
[2020-02-10] MEDS: D5W/SOD CHL 0.45% 1,000 ML IV SCH (04:06)
[2020-02-10] MEDS: ALBUTEROL SULF 2.5 MG/0.5ML(0.5%) NEB SOLN NEB SCH ×5 (06:31→22:54)
[2020-02-10] MEDS: IPRATROPIUM BROM 0.5 MG/2.5ML INH SOL NEB SCH ×5 (06:31→22:54)
[2020-02-10] MEDS ORDERED: SODIUM CHL 0.9% 1000 ML BAG XX ONE (07:00)
[2020-02-10] MEDS: AMIODARONE HCL 200 MG TAB PO SCH (10:00)
[2020-02-10] MEDS: FUROSEMIDE 100 MG/10ML VIAL IV SCH (10:00)
[2020-02-10] MEDS ORDERED: ACETAMINOPHEN IV 1000 MG/100ML (10MG/ML) IV ONE (10:45)
[2020-02-10] MEDS ORDERED: ENOXAPARIN SOD 100 MG/1 ML SYRINGE SC ONE (10:45)
[2020-02-10] MEDS: FAMOTIDINE (10MG/ML) 2ML VL IV SCH (12:59)
[2020-02-10] MEDS: LORazepam 2MG/ML-1ML VIAL IV PRN (15:10)
[2020-02-10] MEDS ORDERED: LIDOCAINE 2% JELLY 11ml (GLYDO) ONE (15:53)
[2020-02-10] MEDS ORDERED: LIDOCAINE 2% JELLY 11ml (GLYDO) UR ONE (16:30)
[2020-02-10 21:15] LABS: Urine Bacteria FEW /hpf (None Seen); Urine Blood 3+ /uL (Negative); Urine Budding Yeast MODERATE /hpf (None Seen); Urine Specific Gravity 1.009 (1.001-1.035); Urine WBC 3 /hpf (0 - 3); Urine WBC Clumps PRESENT /hpf (None Seen)
[2020-02-11] VITALS (81 sets, daily range): BP systolic 62–135; BP diastolic 34–68
[2020-02-11] MEDS: LORazepam 2MG/ML-1ML VIAL IV PRN (02:19)
[2020-02-11] MEDS: LINEZOLID 600MG/300ML 300 ML IV SCH ×2 (04:03→16:36)
[2020-02-11] MEDS: D5W/SOD CHL 0.45% 1,000 ML IV SCH (04:04)
[2020-02-11 04:09] LABS: Basophils # (auto) 0 10 ^3/uL (0-0.2); Basophils % (auto) 0.1 % (0.0-2.0); Eosinophils # (auto) 0 10 ^3/uL (0-0.8); Eosinophils % (auto) 0.1 % (0.0-7.0); Hematocrit 28.2 % (41.0-53.0); Hemoglobin 9.1 g/dL (13.5-17.5); Lymphocytes # (auto) 0.7 10 ^3/uL (0.4-5.4); Lymphocytes % (auto) 3.5 % (10.0-50.0); Mean Corpuscular Hemoglobin 31.3 pg (28.0-32.0); Mean Corpuscular Hgb Conc. 32.2 g/dL (32.0-36.0); Mean Corpuscular Volume 97.3 fL (80.0-100.0); Monocytes # (auto) 1.6 10 ^3/uL (0-1.3); Monocytes % (auto) 8.7 % (0.0-12.0); Neutrophils # (auto) 16.1 10 ^3/uL (1.6-8.6); Neutrophils % (auto) 87.6 % (37.0-80.0); Platelet Count (auto) 110 10^3/uL (140-450); Red Blood Cells 2.89 10^6/uL (4.5-5.90); Red Cell Distribution Width 16.5 % (11.8-14.3); White Blood Cell 18.4 10^3/uL (4.4-10.8)
[2020-02-11 04:31] LABS: BUN/Creatinine Ratio 15.3; Calcium 8.7 mg/dL (8.5-10.1)
[2020-02-11] MEDS ORDERED: ETOMIDATE (2MG/ML) 20ML VIAL IV ONE ×2 (04:59→05:01)
[2020-02-11] MEDS ORDERED: SUCCINYLCHOLINE CHLORIDE 20 MG/ML 10ML VIAL IV ONE ×2 (04:59→05:03)
[2020-02-11] MEDS: MIDAZOLAM DRIP 50 mg/50mL 50 ML IV SCH (05:35)
[2020-02-11] MEDS ORDERED: NOREPINEPHRINE 8 MG/250ML KIT 250 ML IV ONE (06:16)
[2020-02-11] MEDS: NOREPINEPHRINE 8 MG/250ML KIT 250 ML IV SCH (06:50)
[2020-02-11] MEDS: AMIODARONE 450mg/250ml AE 250 ML IV SCH ×2 (08:40→10:46)
[2020-02-11 09:43] LABS: Hepatitis B Surface Antibody Negative
[2020-02-11] MEDS: AMIODARONE HCL 200 MG TAB PO SCH (10:00)
[2020-02-11] MEDS: ENOXAPARIN SOD 100 MG/1 ML SYRINGE SC SCH (10:00)
[2020-02-11] MEDS: IPRATROPIUM BROM 0.5 MG/2.5ML INH SOL NEB SCH ×5 (10:37→22:08)
[2020-02-11] MEDS: ALBUTEROL SULF 2.5 MG/0.5ML(0.5%) NEB SOLN NEB SCH ×5 (10:37→22:08)
[2020-02-11 11:32] LABS: Hepatitis B Core Total AB Negative; Hepatitis B Surface Antigen Negative (Negative)
[2020-02-11] MEDS: FAMOTIDINE (10MG/ML) 2ML VL IV SCH (12:05)
[2020-02-11] MEDS: FUROSEMIDE 100 MG/10ML VIAL IV SCH ×2 (12:05→18:54)
[2020-02-11] MEDS ORDERED: Glucerna 1.2 Cal 1Liter BOTTLE GT SCH (15:15)
[2020-02-11] MEDS: ERTAPENEM SOD INJ 1 GM in SODIUM CHL 0.9% 50 ML IV SCH (22:13)
[2020-02-12] VITALS (105 sets, daily range): BP systolic 84–132; BP diastolic 46–73
[2020-02-12] MEDS: AMIODARONE 450mg/250ml AE 250 ML IV SCH ×2 (00:01→16:00)
[2020-02-12] MEDS: D5W/SOD CHL 0.45% 1,000 ML IV SCH (00:15)
[2020-02-12] MEDS: MIDAZOLAM DRIP 50 mg/50mL 50 ML IV SCH ×2 (01:00→23:21)
[2020-02-12] MEDS: LINEZOLID 600MG/300ML 300 ML IV SCH (04:00)
[2020-02-12 05:34] LABS: Basophils # (auto) 0 10 ^3/uL (0-0.2); Eosinophils # (auto) 0.1 10 ^3/uL (0-0.8); Eosinophils % (auto) 0.4 % (0.0-7.0); Hematocrit 26.5 % (41.0-53.0); Hemoglobin 8.6 g/dL (13.5-17.5); Lymphocytes # (auto) 0.5 10 ^3/uL (0.4-5.4); Lymphocytes % (auto) 3.7 % (10.0-50.0); Mean Corpuscular Hemoglobin 31.4 pg (28.0-32.0); Mean Corpuscular Hgb Conc. 32.4 g/dL (32.0-36.0); Mean Corpuscular Volume 96.8 fL (80.0-100.0); Monocytes # (auto) 1.1 10 ^3/uL (0-1.3); Monocytes % (auto) 7.6 % (0.0-12.0); Neutrophils # (auto) 12.9 10 ^3/uL (1.6-8.6); Neutrophils % (auto) 88.3 % (37.0-80.0); Platelet Count (auto) 91 10^3/uL (140-450); Red Blood Cells 2.74 10^6/uL (4.5-5.90); Red Cell Distribution Width 16.4 % (11.8-14.3); White Blood Cell 14.6 10^3/uL (4.4-10.8)
[2020-02-12 05:45] LABS: BUN/Creatinine Ratio 15.8; Calcium 8.2 mg/dL (8.5-10.1); Potassium 3.6 mmol/L (3.5-5.1)
[2020-02-12] MEDS: FUROSEMIDE 100 MG/10ML VIAL IV SCH ×2 (05:47→17:54)
[2020-02-12] MEDS: NOREPINEPHRINE 8 MG/250ML KIT 250 ML IV SCH (06:15)
[2020-02-12] MEDS: IPRATROPIUM BROM 0.5 MG/2.5ML INH SOL NEB SCH ×5 (06:20→22:49)
[2020-02-12] MEDS: ALBUTEROL SULF 2.5 MG/0.5ML(0.5%) NEB SOLN NEB SCH ×5 (06:20→22:49)
[2020-02-12] MEDS ORDERED: SODIUM CHL 0.9% 1000 ML BAG XX ONE (07:00)
[2020-02-12] MEDS ORDERED: TPN PER PHARMACY 0 ML IV SCH (10:45)
[2020-02-12] MEDS: FAMOTIDINE (10MG/ML) 2ML VL IV SCH (11:01)
[2020-02-12] MEDS: ENOXAPARIN SOD 100 MG/1 ML SYRINGE SC SCH (11:33)
[2020-02-12 12:39] LABS: Albumin 1.9 g/dL (3.4-5.0); Calcium 7.8 mg/dL (8.5-10.1); Magnesium 1.8 mg/dL (1.6-2.6)
[2020-02-12 12:46] LABS: BUN/Creatinine Ratio 16.6; Bilirubin, Total 1.4 mg/dL (0.2-1.0); Phosphorus 2.8 mg/dL (2.5-4.90); Pre Albumin 4.6 mg/dL (20.0-40.0); Total Protein 4.7 g/dL (6.4-8.2)
[2020-02-12 12:47] LABS: Potassium 2.9 mmol/L (3.5-5.1)
[2020-02-12] MEDS ORDERED: POTASSIUM CHL 20MEQ/100ML 100 ML IV SCH (13:45)
[2020-02-12 17:41] LABS: Magnesium 1.8 mg/dL (1.6-2.6); Potassium 3.6 mmol/L (3.5-5.1)
[2020-02-12] MEDS ORDERED: TPN PER PHARMACY IV NR ×8 (20:00)
[2020-02-12] MEDS ORDERED: EPOETIN ALFA 4,000 UNIT/ML VL SC ONE (21:00)
[2020-02-12] MEDS: ERTAPENEM SOD INJ 1 GM in SODIUM CHL 0.9% 50 ML IV SCH (23:20)
[2020-02-13] VITALS (101 sets, daily range): BP systolic 77–136; BP diastolic 42–72
[2020-02-13] MEDS ORDERED: DEXTROSE (50%) 50ML SYRG IV SCH
[2020-02-13] MEDS: ACCU-CHEK COMFORT CURVE STRIP VI SCH ×4 (00:33→18:14)
[2020-02-13 04:35] LABS: Basophils # (auto) 0 10 ^3/uL (0-0.2); Basophils % (auto) 0.1 % (0.0-2.0); Eosinophils # (auto) 0 10 ^3/uL (0-0.8); Eosinophils % (auto) 0.1 % (0.0-7.0); Hematocrit 27.4 % (41.0-53.0); Hemoglobin 9.1 g/dL (13.5-17.5); Lymphocytes # (auto) 0.6 10 ^3/uL (0.4-5.4); Lymphocytes % (auto) 3.5 % (10.0-50.0); Mean Corpuscular Hemoglobin 31.7 pg (28.0-32.0); Mean Corpuscular Hgb Conc. 33.1 g/dL (32.0-36.0); Mean Corpuscular Volume 95.6 fL (80.0-100.0); Monocytes # (auto) 1.2 10 ^3/uL (0-1.3); Monocytes % (auto) 7.1 % (0.0-12.0); Neutrophils # (auto) 15.6 10 ^3/uL (1.6-8.6); Neutrophils % (auto) 89.2 % (37.0-80.0); Platelet Count (auto) 83 10^3/uL (140-450); Red Blood Cells 2.86 10^6/uL (4.5-5.90); Red Cell Distribution Width 16.6 % (11.8-14.3); White Blood Cell 17.4 10^3/uL (4.4-10.8)
[2020-02-13 04:50] LABS: Albumin 1.9 g/dL (3.4-5.0); BUN/Creatinine Ratio 15.5; Calcium 7.8 mg/dL (8.5-10.1); Magnesium 1.9 mg/dL (1.6-2.6); Potassium 3.5 mmol/L (3.5-5.1)
[2020-02-13 04:53] LABS: Bilirubin, Total 1.5 mg/dL (0.2-1.0); Total Protein 5.1 g/dL (6.4-8.2)
[2020-02-13 04:54] LABS: INR 1.81 (0.9-1.15); Partial Thromboplastin Time 36.9 sec (23.0-31.2)
[2020-02-13] MEDS: AMIODARONE 450mg/250ml AE 250 ML IV SCH ×2 (05:42→20:00)
[2020-02-13] MEDS: MIDAZOLAM DRIP 50 mg/50mL 50 ML IV SCH (05:45)
[2020-02-13] MEDS: FUROSEMIDE 100 MG/10ML VIAL IV SCH ×2 (06:00→18:00)
[2020-02-13] MEDS: ALBUTEROL SULF 2.5 MG/0.5ML(0.5%) NEB SOLN NEB SCH ×5 (06:30→22:13)
[2020-02-13] MEDS: IPRATROPIUM BROM 0.5 MG/2.5ML INH SOL NEB SCH ×5 (06:30→22:13)
[2020-02-13] MEDS: InsuLIN REG 1unit/0.01ml Soln (100units/ml) SC SCH ×4 (06:36→18:15)
[2020-02-13] MEDS: FAMOTIDINE (10MG/ML) 2ML VL IV SCH (09:53)
[2020-02-13] MEDS ORDERED: POTASSIUM CHL 20MEQ/100ML 100 ML IV ONE (12:45)
[2020-02-13] MEDS: NOREPINEPHRINE 8 MG/250ML KIT 250 ML IV SCH (20:00)
[2020-02-13] MEDS ORDERED: TPN PER PHARMACY IV NR ×9 (20:00)
[2020-02-13] MEDS: ERTAPENEM SOD INJ 1 GM in SODIUM CHL 0.9% 50 ML IV SCH (22:00)
[2020-02-14] VITALS (99 sets, daily range): BP systolic 76–127; BP diastolic 40–68
[2020-02-14 05:15] LABS: Basophils # (auto) 0 10 ^3/uL (0-0.2); Basophils % (auto) 0.1 % (0.0-2.0); Eosinophils # (auto) 0.1 10 ^3/uL (0-0.8); Eosinophils % (auto) 0.3 % (0.0-7.0); Hematocrit 26.2 % (41.0-53.0); Hemoglobin 8.6 g/dL (13.5-17.5); Lymphocytes # (auto) 0.8 10 ^3/uL (0.4-5.4); Lymphocytes % (auto) 4.5 % (10.0-50.0); Mean Corpuscular Hemoglobin 31.3 pg (28.0-32.0); Mean Corpuscular Hgb Conc. 32.9 g/dL (32.0-36.0); Mean Corpuscular Volume 95.2 fL (80.0-100.0); Monocytes # (auto) 2.3 10 ^3/uL (0-1.3); Monocytes % (auto) 12.5 % (0.0-12.0); Neutrophils # (auto) 15.5 10 ^3/uL (1.6-8.6); Neutrophils % (auto) 82.6 % (37.0-80.0); Platelet Count (auto) 83 10^3/uL (140-450); Red Blood Cells 2.75 10^6/uL (4.5-5.90); Red Cell Distribution Width 16.6 % (11.8-14.3); White Blood Cell 18.7 10^3/uL (4.4-10.8)
[2020-02-14 05:32] LABS: Albumin 1.8 g/dL (3.4-5.0); Magnesium 1.9 mg/dL (1.6-2.6); Potassium 3.8 mmol/L (3.5-5.1)
[2020-02-14 05:35] LABS: BUN/Creatinine Ratio 20.3; Bilirubin, Total 1.4 mg/dL (0.2-1.0)
[2020-02-14] MEDS: FUROSEMIDE 100 MG/10ML VIAL IV SCH ×2 (05:41→17:51)
[2020-02-14] MEDS: ACCU-CHEK COMFORT CURVE STRIP VI SCH ×5 (05:52→23:49)
[2020-02-14] MEDS: InsuLIN REG 1unit/0.01ml Soln (100units/ml) SC SCH ×5 (05:56→23:59)
[2020-02-14] MEDS: NOREPINEPHRINE 8 MG/250ML KIT 250 ML IV SCH ×2 (06:15→21:40)
[2020-02-14] MEDS: ALBUTEROL SULF 2.5 MG/0.5ML(0.5%) NEB SOLN NEB SCH ×4 (06:17→19:01)
[2020-02-14] MEDS: IPRATROPIUM BROM 0.5 MG/2.5ML INH SOL NEB SCH ×4 (06:17→19:01)
[2020-02-14] MEDS: FAMOTIDINE (10MG/ML) 2ML VL IV SCH (10:27)
[2020-02-14] MEDS: AMIODARONE 450mg/250ml AE 250 ML IV SCH ×2 (10:28→23:49)
[2020-02-14] MEDS: PIPERACILLIN-TAZOB 3.375GM 100 ML IV SCH ×2 (14:01→23:49)
[2020-02-14] MEDS ORDERED: TPN PER PHARMACY IV NR ×10 (20:00)
[2020-02-15] VITALS (103 sets, daily range): BP systolic 96–138; BP diastolic 46–62
[2020-02-15] MEDS: ALBUTEROL SULF 2.5 MG/0.5ML(0.5%) NEB SOLN NEB SCH ×6 (00:37→22:25)
[2020-02-15] MEDS: IPRATROPIUM BROM 0.5 MG/2.5ML INH SOL NEB SCH ×6 (00:38→22:25)
[2020-02-15] MEDS: MIDAZOLAM DRIP 50 mg/50mL 50 ML IV SCH ×2 (05:09→07:03)
[2020-02-15 05:54] LABS: Albumin 1.7 g/dL (3.4-5.0); Calcium 8.1 mg/dL (8.5-10.1); Magnesium 2.1 mg/dL (1.6-2.6)
[2020-02-15 05:58] LABS: BUN/Creatinine Ratio 23.7; Bilirubin, Total 1.7 mg/dL (0.2-1.0); Phosphorus 3.7 mg/dL (2.5-4.90); Total Protein 5.1 g/dL (6.4-8.2)
[2020-02-15] MEDS: PIPERACILLIN-TAZOB 3.375GM 100 ML IV SCH ×3 (06:56→22:00)
[2020-02-15] MEDS: ACCU-CHEK COMFORT CURVE STRIP VI SCH ×4 (06:56→23:37)
[2020-02-15] MEDS: InsuLIN REG 1unit/0.01ml Soln (100units/ml) SC SCH ×3 (07:01→17:28)
[2020-02-15] MEDS: FUROSEMIDE 100 MG/10ML VIAL IV SCH ×2 (07:02→18:18)
[2020-02-15] MEDS: FAMOTIDINE (10MG/ML) 2ML VL IV SCH (10:16)
[2020-02-15] MEDS: NOREPINEPHRINE 8 MG/250ML KIT 250 ML IV SCH (12:25)
[2020-02-15] MEDS: AMIODARONE 450mg/250ml AE 250 ML IV SCH (14:22)
[2020-02-15] MEDS ORDERED: TPN*HIGH CONC* PER PHARMACY IV NR ×12 (20:00)
[2020-02-16] VITALS (96 sets, daily range): BP systolic 83–125; BP diastolic 35–61
[2020-02-16] MEDS: AMIODARONE 450mg/250ml AE 250 ML IV SCH ×2 (00:06→22:23)
[2020-02-16] MEDS: InsuLIN REG 1unit/0.01ml Soln (100units/ml) SC SCH ×4 (00:06→18:00)
[2020-02-16] MEDS: NOREPINEPHRINE 8 MG/250ML KIT 250 ML IV SCH (00:07)
[2020-02-16 03:09] LABS: Basophils # (auto) 0 10 ^3/uL (0-0.2); Basophils % (auto) 0.2 % (0.0-2.0); Eosinophils # (auto) 0.1 10 ^3/uL (0-0.8); Hemoglobin 7.9 g/dL (13.5-17.5); Lymphocytes # (auto) 0.9 10 ^3/uL (0.4-5.4); Monocytes # (auto) 1.8 10 ^3/uL (0-1.3); Neutrophils % (auto) 75.8 % (37.0-80.0)
[2020-02-16 03:10] LABS: Eosinophils % (auto) 0.9 % (0.0-7.0); Hematocrit 23.7 % (41.0-53.0); Lymphocytes % (auto) 7.7 % (10.0-50.0); Mean Corpuscular Hemoglobin 31.8 pg (28.0-32.0); Mean Corpuscular Hgb Conc. 33.5 g/dL (32.0-36.0); Mean Corpuscular Volume 95.2 fL (80.0-100.0); Monocytes % (auto) 15.4 % (0.0-12.0); Neutrophils # (auto) 8.8 10 ^3/uL (1.6-8.6); Platelet Count (auto) 95 10^3/uL (140-450); Red Blood Cells 2.49 10^6/uL (4.5-5.90); White Blood Cell 11.6 10^3/uL (4.4-10.8)
[2020-02-16 03:27] LABS: Albumin 1.6 g/dL (3.4-5.0); BUN/Creatinine Ratio 26.2; Calcium 8.1 mg/dL (8.5-10.1); Magnesium 2.1 mg/dL (1.6-2.6); Potassium 3.7 mmol/L (3.5-5.1)
[2020-02-16 03:30] LABS: Phosphorus 3.8 mg/dL (2.5-4.90); Total Protein 5.1 g/dL (6.4-8.2)
[2020-02-16 03:41] LABS: INR 1.51 (0.9-1.15); Partial Thromboplastin Time 33.7 sec (23.0-31.2)
[2020-02-16] MEDS: PIPERACILLIN-TAZOB 3.375GM 100 ML IV SCH ×3 (05:25→22:23)
[2020-02-16] MEDS: FUROSEMIDE 100 MG/10ML VIAL IV SCH ×2 (05:25→18:00)
[2020-02-16] MEDS: ACCU-CHEK COMFORT CURVE STRIP VI SCH ×3 (05:27→18:00)
[2020-02-16] MEDS: ALBUTEROL SULF 2.5 MG/0.5ML(0.5%) NEB SOLN NEB SCH ×5 (06:40→22:21)
[2020-02-16] MEDS: IPRATROPIUM BROM 0.5 MG/2.5ML INH SOL NEB SCH ×5 (06:40→22:21)
[2020-02-16] MEDS: FAMOTIDINE (10MG/ML) 2ML VL IV SCH (10:00)
[2020-02-16] MEDS ORDERED: TPN*HIGH CONC* PER PHARMACY IV NR ×10 (20:00)
[2020-02-17] VITALS (103 sets, daily range): BP systolic 86–120; BP diastolic 44–59
[2020-02-17] MEDS: ACCU-CHEK COMFORT CURVE STRIP VI SCH ×4 (00:30→18:00)
[2020-02-17] MEDS: InsuLIN REG 1unit/0.01ml Soln (100units/ml) SC SCH ×4 (00:30→18:00)
[2020-02-17] MEDS: MIDAZOLAM DRIP 50 mg/50mL 50 ML IV SCH (05:09)
[2020-02-17 05:47] LABS: Albumin 1.7 g/dL (3.4-5.0); Calcium 8.2 mg/dL (8.5-10.1); Magnesium 2.2 mg/dL (1.6-2.6); Potassium 3.5 mmol/L (3.5-5.1)
[2020-02-17 05:51] LABS: BUN/Creatinine Ratio 29.7; Bilirubin, Total 1.8 mg/dL (0.2-1.0); Phosphorus 3.3 mg/dL (2.5-4.90)
[2020-02-17] MEDS: FUROSEMIDE 100 MG/10ML VIAL IV SCH (06:00)
[2020-02-17] MEDS: PIPERACILLIN-TAZOB 3.375GM 100 ML IV SCH ×3 (06:10→21:03)
[2020-02-17] MEDS: NOREPINEPHRINE 8 MG/250ML KIT 250 ML IV SCH (06:11)
[2020-02-17] MEDS: ALBUTEROL SULF 2.5 MG/0.5ML(0.5%) NEB SOLN NEB SCH ×5 (06:37→21:56)
[2020-02-17] MEDS: IPRATROPIUM BROM 0.5 MG/2.5ML INH SOL NEB SCH ×5 (06:37→21:56)
[2020-02-17] MEDS ORDERED: POTASSIUM CHL 20MEQ/100ML 100 ML IV ONE (09:00)
[2020-02-17] MEDS: FAMOTIDINE (10MG/ML) 2ML VL IV SCH (10:00)
[2020-02-17] MEDS: AMIODARONE 450mg/250ml AE 250 ML IV SCH (15:16)
[2020-02-17] MEDS ORDERED: TPN*HIGH CONC* PER PHARMACY IV NR ×10 (20:00)
[2020-02-18] VITALS (90 sets, daily range): BP systolic 85–123; BP diastolic 35–61
[2020-02-18] MEDS: ACCU-CHEK COMFORT CURVE STRIP VI SCH ×5 (00:20→23:38)
[2020-02-18] MEDS: AMIODARONE 450mg/250ml AE 250 ML IV SCH (03:28)
[2020-02-18 04:05] LABS: Albumin 1.7 g/dL (3.4-5.0); Calcium 8.5 mg/dL (8.5-10.1); Magnesium 2.3 mg/dL (1.6-2.6); Potassium 3.7 mmol/L (3.5-5.1)
[2020-02-18 04:07] LABS: BUN/Creatinine Ratio 30.6; Bilirubin, Total 1.9 mg/dL (0.2-1.0); Phosphorus 3.5 mg/dL (2.5-4.90); Total Protein 5.2 g/dL (6.4-8.2)
[2020-02-18] MEDS: PIPERACILLIN-TAZOB 3.375GM 100 ML IV SCH ×3 (05:50→22:49)
[2020-02-18] MEDS: InsuLIN REG 1unit/0.01ml Soln (100units/ml) SC SCH ×5 (05:51→18:09)
[2020-02-18] MEDS: IPRATROPIUM BROM 0.5 MG/2.5ML INH SOL NEB SCH ×5 (06:15→22:33)
[2020-02-18] MEDS: ALBUTEROL SULF 2.5 MG/0.5ML(0.5%) NEB SOLN NEB SCH ×5 (06:15→22:33)
[2020-02-18] MEDS: FAMOTIDINE (10MG/ML) 2ML VL IV SCH (10:45)
[2020-02-18] MEDS ORDERED: SODIUM CHLORIDE IV NR ×10 (20:00)
[2020-02-18] MEDS ORDERED: FAT EMULSION30 IV NR ×10 (20:00)
[2020-02-18] MEDS ORDERED: TPN*HIGH CONC* PER PHARMACY IV NR ×10 (20:00)
[2020-02-18] MEDS ORDERED: [UNRECOGNIZED DRUG - OTHER] IV NR ×10 (20:00)
[2020-02-18] MEDS ORDERED: SODIUM PHOSPHATES IV NR ×10 (20:00)
[2020-02-18] MEDS: NOREPINEPHRINE 8 MG/250ML KIT 250 ML IV SCH (23:01)
[2020-02-19] VITALS (94 sets, daily range): BP systolic 84–126; BP diastolic 24–59
[2020-02-19] MEDS: AMIODARONE 450mg/250ml AE 250 ML IV SCH (04:38)
[2020-02-19 05:13] LABS: Basophils # (auto) 0 10 ^3/uL (0-0.2); Hemoglobin 7.7 g/dL (13.5-17.5); Lymphocytes # (auto) 0.6 10 ^3/uL (0.4-5.4); Neutrophils # (auto) 6.4 10 ^3/uL (1.6-8.6); White Blood Cell 8.1 10^3/uL (4.4-10.8)
[2020-02-19 05:16] LABS: Basophils % (auto) 0.5 % (0.0-2.0); Eosinophils # (auto) 0.2 10 ^3/uL (0-0.8); Hematocrit 22.6 % (41.0-53.0); Lymphocytes % (auto) 7.4 % (10.0-50.0); Mean Corpuscular Hemoglobin 32.7 pg (28.0-32.0); Mean Corpuscular Hgb Conc. 33.9 g/dL (32.0-36.0); Mean Corpuscular Volume 96.4 fL (80.0-100.0); Monocytes # (auto) 0.9 10 ^3/uL (0-1.3); Monocytes % (auto) 10.8 % (0.0-12.0); Neutrophils % (auto) 78.3 % (37.0-80.0); Platelet Count (auto) 172 10^3/uL (140-450); Red Blood Cells 2.34 10^6/uL (4.5-5.90); Red Cell Distribution Width 15.5 % (11.8-14.3)
[2020-02-19 05:34] LABS: Albumin 1.8 g/dL (3.4-5.0); Calcium 8.3 mg/dL (8.5-10.1); Potassium 3.6 mmol/L (3.5-5.1)
[2020-02-19 05:38] LABS: Pre Albumin 15.2 mg/dL (20.0-40.0)
[2020-02-19 05:40] LABS: BUN/Creatinine Ratio 31.9; Bilirubin, Total 1.7 mg/dL (0.2-1.0); Magnesium 2.4 mg/dL (1.6-2.6); Phosphorus 3.2 mg/dL (2.5-4.90); Total Protein 5.4 g/dL (6.4-8.2)
[2020-02-19] MEDS: PIPERACILLIN-TAZOB 3.375GM 100 ML IV SCH ×3 (05:42→22:06)
[2020-02-19] MEDS: ALBUTEROL SULF 2.5 MG/0.5ML(0.5%) NEB SOLN NEB SCH ×5 (06:10→22:50)
[2020-02-19] MEDS: IPRATROPIUM BROM 0.5 MG/2.5ML INH SOL NEB SCH ×5 (06:10→22:50)
[2020-02-19] MEDS: NOREPINEPHRINE 8 MG/250ML KIT 250 ML IV SCH (06:15)
[2020-02-19] MEDS: ACCU-CHEK COMFORT CURVE STRIP VI SCH ×3 (06:24→18:00)
[2020-02-19] MEDS: InsuLIN REG 1unit/0.01ml Soln (100units/ml) SC SCH ×3 (06:25→18:00)
[2020-02-19] MEDS: FAMOTIDINE (10MG/ML) 2ML VL IV SCH (09:47)
[2020-02-19] MEDS ORDERED: FUROSEMIDE 20 MG/2 ML VIAL IV ONE ×2 (11:15→20:30)
[2020-02-19] MEDS ORDERED: GOLYTELY 4L KIT PO ONE ×2 (15:00→18:15)
[2020-02-19] MEDS ORDERED: AMIODARONE 450mg/250ml AE 250 ML IV SCH (21:00)
[2020-02-19] MEDS: AMIODARONE HCL 200 MG TAB PO SCH (22:07)
[2020-02-20] VITALS (93 sets, daily range): BP systolic 83–129; BP diastolic 30–72
[2020-02-20] MEDS: ACCU-CHEK COMFORT CURVE STRIP VI SCH ×5 (00:08→23:36)
[2020-02-20] MEDS: NOREPINEPHRINE 8 MG/250ML KIT 250 ML IV SCH (02:15)
[2020-02-20] MEDS: PIPERACILLIN-TAZOB 3.375GM 100 ML IV SCH ×3 (05:32→22:21)
[2020-02-20] MEDS: InsuLIN REG 1unit/0.01ml Soln (100units/ml) SC SCH ×5 (05:33→23:36)
[2020-02-20 05:44] LABS: Basophils # (auto) 0.1 10 ^3/uL (0-0.2); Basophils % (auto) 0.6 % (0.0-2.0); Eosinophils # (auto) 0.2 10 ^3/uL (0-0.8); Eosinophils % (auto) 1.7 % (0.0-7.0); Hematocrit 26.8 % (41.0-53.0); Hemoglobin 8.9 g/dL (13.5-17.5); Lymphocytes # (auto) 0.7 10 ^3/uL (0.4-5.4); Lymphocytes % (auto) 6.6 % (10.0-50.0); Mean Corpuscular Hemoglobin 31.5 pg (28.0-32.0); Mean Corpuscular Hgb Conc. 33.1 g/dL (32.0-36.0); Mean Corpuscular Volume 95.3 fL (80.0-100.0); Monocytes # (auto) 0.9 10 ^3/uL (0-1.3); Monocytes % (auto) 8.7 % (0.0-12.0); Neutrophils # (auto) 8.8 10 ^3/uL (1.6-8.6); Neutrophils % (auto) 82.4 % (37.0-80.0); Platelet Count (auto) 199 10^3/uL (140-450); Red Blood Cells 2.81 10^6/uL (4.5-5.90); Red Cell Distribution Width 17.2 % (11.8-14.3); White Blood Cell 10.7 10^3/uL (4.4-10.8)
[2020-02-20 06:07] LABS: Calcium 8.5 mg/dL (8.5-10.1); Magnesium 2.4 mg/dL (1.6-2.6); Potassium 3.8 mmol/L (3.5-5.1)
[2020-02-20 06:10] LABS: BUN/Creatinine Ratio 32.1
[2020-02-20] MEDS: IPRATROPIUM BROM 0.5 MG/2.5ML INH SOL NEB SCH ×5 (06:33→22:45)
[2020-02-20] MEDS: ALBUTEROL SULF 2.5 MG/0.5ML(0.5%) NEB SOLN NEB SCH ×5 (06:33→22:45)
[2020-02-20] MEDS: AMIODARONE HCL 200 MG TAB PO SCH ×2 (11:08→22:20)
[2020-02-20] MEDS: FAMOTIDINE (10MG/ML) 2ML VL IV SCH (11:08)
[2020-02-20] MEDS: HYDROCORTISONE SOD SUCC 100 MG/2ML INJ VIAL IV SCH (22:20)
[2020-02-21] VITALS (88 sets, daily range): BP systolic 84–133; BP diastolic 22–67
[2020-02-21] MEDS: NOREPINEPHRINE 8 MG/250ML KIT 250 ML IV SCH (06:15)
[2020-02-21] MEDS: ALBUTEROL SULF 2.5 MG/0.5ML(0.5%) NEB SOLN NEB SCH ×5 (06:40→21:44)
[2020-02-21] MEDS: IPRATROPIUM BROM 0.5 MG/2.5ML INH SOL NEB SCH ×5 (06:40→21:45)
[2020-02-21 06:42] LABS: Basophils # (auto) 0 10 ^3/uL (0-0.2); Basophils % (auto) 0.2 % (0.0-2.0); Eosinophils # (auto) 0 10 ^3/uL (0-0.8); Hematocrit 28.4 % (41.0-53.0); Hemoglobin 9.3 g/dL (13.5-17.5); Lymphocytes # (auto) 0.6 10 ^3/uL (0.4-5.4); Lymphocytes % (auto) 5.6 % (10.0-50.0); Mean Corpuscular Hemoglobin 31.2 pg (28.0-32.0); Mean Corpuscular Hgb Conc. 32.6 g/dL (32.0-36.0); Mean Corpuscular Volume 95.5 fL (80.0-100.0); Monocytes # (auto) 0.2 10 ^3/uL (0-1.3); Monocytes % (auto) 2.2 % (0.0-12.0); Neutrophils # (auto) 10.2 10 ^3/uL (1.6-8.6); Platelet Count (auto) 258 10^3/uL (140-450); Red Blood Cells 2.97 10^6/uL (4.5-5.90)
[2020-02-21] MEDS: ACCU-CHEK COMFORT CURVE STRIP VI SCH ×3 (06:42→17:20)
[2020-02-21] MEDS: HYDROCORTISONE SOD SUCC 100 MG/2ML INJ VIAL IV SCH ×3 (06:49→22:30)
[2020-02-21] MEDS: InsuLIN REG 1unit/0.01ml Soln (100units/ml) SC SCH ×3 (06:50→17:25)
[2020-02-21] MEDS: PIPERACILLIN-TAZOB 3.375GM 100 ML IV SCH ×3 (06:50→22:31)
[2020-02-21 07:05] LABS: Potassium 3.9 mmol/L (3.5-5.1)
[2020-02-21 07:08] LABS: BUN/Creatinine Ratio 31.9; Calcium 9.1 mg/dL (8.5-10.1)
[2020-02-21] MEDS: AMIODARONE HCL 200 MG TAB PO SCH ×2 (09:20→22:31)
[2020-02-21] MEDS: FAMOTIDINE (10MG/ML) 2ML VL IV SCH (09:20)
[2020-02-21] MEDS: D5W/SOD CHL 0.45% 1,000 ML IV SCH (13:47)
[2020-02-22] VITALS (73 sets, daily range): BP systolic 84–123; BP diastolic 22–56
[2020-02-22] MEDS: D5W/SOD CHL 0.45% 1,000 ML IV SCH ×2 (02:42→16:36)
[2020-02-22] MEDS: ACCU-CHEK COMFORT CURVE STRIP VI SCH ×5 (02:42→23:40)
[2020-02-22] MEDS: InsuLIN REG 1unit/0.01ml Soln (100units/ml) SC SCH ×5 (02:43→23:42)
[2020-02-22 05:57] LABS: Basophils # (auto) 0 10 ^3/uL (0-0.2); Basophils % (auto) 0.1 % (0.0-2.0); Eosinophils # (auto) 0 10 ^3/uL (0-0.8); Hematocrit 28.3 % (41.0-53.0); Hemoglobin 8.9 g/dL (13.5-17.5); Lymphocytes # (auto) 0.7 10 ^3/uL (0.4-5.4); Lymphocytes % (auto) 5.6 % (10.0-50.0); Mean Corpuscular Hemoglobin 30.4 pg (28.0-32.0); Mean Corpuscular Hgb Conc. 31.3 g/dL (32.0-36.0); Monocytes # (auto) 0.4 10 ^3/uL (0-1.3); Monocytes % (auto) 3.2 % (0.0-12.0); Neutrophils # (auto) 12.1 10 ^3/uL (1.6-8.6); Neutrophils % (auto) 91.1 % (37.0-80.0); Platelet Count (auto) 256 10^3/uL (140-450); Red Blood Cells 2.92 10^6/uL (4.5-5.90); Red Cell Distribution Width 17.5 % (11.8-14.3); White Blood Cell 13.2 10^3/uL (4.4-10.8)
[2020-02-22] MEDS: ALBUTEROL SULF 2.5 MG/0.5ML(0.5%) NEB SOLN NEB SCH ×5 (06:01→22:43)
[2020-02-22] MEDS: IPRATROPIUM BROM 0.5 MG/2.5ML INH SOL NEB SCH ×5 (06:01→22:43)
[2020-02-22] MEDS: NOREPINEPHRINE 8 MG/250ML KIT 250 ML IV SCH (06:43)
[2020-02-22] MEDS: HYDROCORTISONE SOD SUCC 100 MG/2ML INJ VIAL IV SCH ×3 (07:05→21:16)
[2020-02-22] MEDS: PIPERACILLIN-TAZOB 3.375GM 100 ML IV SCH ×3 (07:05→21:16)
[2020-02-22] MEDS: FAMOTIDINE (10MG/ML) 2ML VL IV SCH (09:54)
[2020-02-22] MEDS: AMIODARONE HCL 200 MG TAB PO SCH ×2 (09:54→21:17)
[2020-02-23] VITALS (34 sets, daily range): BP systolic 94–140; BP diastolic 35–72
[2020-02-23 04:11] LABS: Basophils # (auto) 0 10 ^3/uL (0-0.2); Basophils % (auto) 0.1 % (0.0-2.0); Eosinophils # (auto) 0 10 ^3/uL (0-0.8); Hemoglobin 8.6 g/dL (13.5-17.5); Lymphocytes # (auto) 0.6 10 ^3/uL (0.4-5.4); Lymphocytes % (auto) 4.1 % (10.0-50.0); Mean Corpuscular Hemoglobin 30.6 pg (28.0-32.0); Mean Corpuscular Hgb Conc. 31.8 g/dL (32.0-36.0); Monocytes # (auto) 0.5 10 ^3/uL (0-1.3); Monocytes % (auto) 3.3 % (0.0-12.0); Neutrophils # (auto) 12.4 10 ^3/uL (1.6-8.6); Neutrophils % (auto) 92.5 % (37.0-80.0); Platelet Count (auto) 264 10^3/uL (140-450); Red Blood Cells 2.81 10^6/uL (4.5-5.90); Red Cell Distribution Width 16.9 % (11.8-14.3); White Blood Cell 13.5 10^3/uL (4.4-10.8)
[2020-02-23 04:28] LABS: BUN/Creatinine Ratio 30.7; Calcium 8.8 mg/dL (8.5-10.1); Magnesium 2.4 mg/dL (1.6-2.6)
[2020-02-23 04:35] LABS: Potassium 2.8 mmol/L (3.5-5.1)
[2020-02-23] MEDS ORDERED: POTASSIUM CHL 20MEQ/100ML 100 ML IV ONE (04:45)
[2020-02-23] MEDS: PIPERACILLIN-TAZOB 3.375GM 100 ML IV SCH ×3 (04:59→21:15)
[2020-02-23] MEDS: InsuLIN REG 1unit/0.01ml Soln (100units/ml) SC SCH ×4 (05:26→23:22)
[2020-02-23] MEDS: ACCU-CHEK COMFORT CURVE STRIP VI SCH ×4 (05:27→23:22)
[2020-02-23] MEDS: NOREPINEPHRINE 8 MG/250ML KIT 250 ML IV SCH (06:04)
[2020-02-23] MEDS: D5W/SOD CHL 0.45% 1,000 ML IV SCH ×2 (06:14→18:04)
[2020-02-23] MEDS: IPRATROPIUM BROM 0.5 MG/2.5ML INH SOL NEB SCH ×3 (06:21→14:00)
[2020-02-23] MEDS: ALBUTEROL SULF 2.5 MG/0.5ML(0.5%) NEB SOLN NEB SCH ×3 (06:21→14:00)
[2020-02-23] MEDS: HYDROCORTISONE SOD SUCC 100 MG/2ML INJ VIAL IV SCH ×3 (06:44→22:12)
[2020-02-23] MEDS: FAMOTIDINE (10MG/ML) 2ML VL IV SCH (10:17)
[2020-02-23] MEDS: AMIODARONE HCL 200 MG TAB PO SCH ×2 (10:17→22:12)
[2020-02-23] MEDS: POTASSIUM CHL 20MEQ/100ML 100 ML IV SCH ×2 (10:19→12:49)
[2020-02-23] MEDS ORDERED: ALBUTEROL SULF 2.5 MG/0.5ML(0.5%) NEB SOLN NEB PRN (19:15)
[2020-02-23] MEDS ORDERED: IPRATROPIUM BROM 0.5 MG/2.5ML INH SOL NEB PRN (19:15)
[2020-02-24] VITALS (25 sets, daily range): BP systolic 101–127; BP diastolic 43–76
[2020-02-24] MEDS: HYDROCORTISONE SOD SUCC 100 MG/2ML INJ VIAL IV SCH ×3 (05:12→23:06)
[2020-02-24] MEDS: ACCU-CHEK COMFORT CURVE STRIP VI SCH ×3 (05:14→18:00)
[2020-02-24] MEDS: PIPERACILLIN-TAZOB 3.375GM 100 ML IV SCH ×3 (05:14→23:07)
[2020-02-24] MEDS: InsuLIN REG 1unit/0.01ml Soln (100units/ml) SC SCH ×3 (05:49→18:34)
[2020-02-24] MEDS: NOREPINEPHRINE 8 MG/250ML KIT 250 ML IV SCH (05:58)
[2020-02-24] MEDS: D5W/SOD CHL 0.45% 1,000 ML IV SCH ×2 (06:41→23:07)
[2020-02-24 08:27] LABS: BUN/Creatinine Ratio 27.5; Calcium 8.5 mg/dL (8.5-10.1); Potassium 3.3 mmol/L (3.5-5.1)
[2020-02-24] MEDS: AMIODARONE HCL 200 MG TAB PO SCH ×2 (09:54→23:06)
[2020-02-24] MEDS: FAMOTIDINE (10MG/ML) 2ML VL IV SCH (09:54)
[2020-02-24] MEDS ORDERED: POTASSIUM CHL 20 Meq TABLET PO ONE (10:45)
[2020-02-24] MEDS ORDERED: FLUCONAZOLE 200MG/100ML 100 ML IV ONE (10:45)
[2020-02-25] MEDS: ACCU-CHEK COMFORT CURVE STRIP VI SCH ×5 (00:19→23:45)
[2020-02-25] MEDS: D5W/SOD CHL 0.45% 1,000 ML IV SCH (04:25)
[2020-02-25 05:25] VITALS: BP 127/70
[2020-02-25] MEDS: InsuLIN REG 1unit/0.01ml Soln (100units/ml) SC SCH ×5 (06:00→23:46)
[2020-02-25] MEDS: HYDROCORTISONE SOD SUCC 100 MG/2ML INJ VIAL IV SCH ×3 (06:02→22:33)
[2020-02-25] MEDS: PIPERACILLIN-TAZOB 3.375GM 100 ML IV SCH ×3 (06:03→22:37)
[2020-02-25 06:51] LABS: Basophils # (auto) 0 10 ^3/uL (0-0.2); Eosinophils # (auto) 0 10 ^3/uL (0-0.8); Hemoglobin 8.3 g/dL (13.5-17.5); Monocytes # (auto) 0.5 10 ^3/uL (0-1.3)
[2020-02-25 06:53] LABS: Hematocrit 25.7 % (41.0-53.0); Lymphocytes # (auto) 0.6 10 ^3/uL (0.4-5.4); Lymphocytes % (auto) 4.9 % (10.0-50.0); Mean Corpuscular Hemoglobin 31.3 pg (28.0-32.0); Mean Corpuscular Hgb Conc. 32.3 g/dL (32.0-36.0); Mean Corpuscular Volume 96.7 fL (80.0-100.0); Neutrophils # (auto) 11.6 10 ^3/uL (1.6-8.6); Neutrophils % (auto) 91.1 % (37.0-80.0); Platelet Count (auto) 231 10^3/uL (140-450); Red Blood Cells 2.66 10^6/uL (4.5-5.90); Red Cell Distribution Width 17.5 % (11.8-14.3); White Blood Cell 12.7 10^3/uL (4.4-10.8)
[2020-02-25 07:10] LABS: Calcium 8.6 mg/dL (8.5-10.1); Magnesium 2.2 mg/dL (1.6-2.6); Potassium 3.6 mmol/L (3.5-5.1)
[2020-02-25 07:13] LABS: BUN/Creatinine Ratio 28.9
[2020-02-25 09:00] VITALS: BP 111/61
[2020-02-25] MEDS: FLUCONAZOLE 200MG/100ML 100 ML IV SCH (10:30)
[2020-02-25] MEDS: AMIODARONE HCL 200 MG TAB PO SCH ×2 (10:30→22:33)
[2020-02-25] MEDS: FAMOTIDINE (10MG/ML) 2ML VL IV SCH (10:30)
[2020-02-25 13:00] VITALS: BP 123/75
[2020-02-25 17:00] VITALS: BP 133/74
[2020-02-25] MEDS: D5W 5% 1,000 ML IV SCH (17:14)
[2020-02-25 22:00] VITALS: BP 129/70
[2020-02-26 04:12] VITALS: BP 130/73
[2020-02-26] MEDS: HYDROCORTISONE SOD SUCC 100 MG/2ML INJ VIAL IV SCH (05:20)
[2020-02-26] MEDS: ACCU-CHEK COMFORT CURVE STRIP VI SCH ×2 (05:21→12:00)
[2020-02-26] MEDS: PIPERACILLIN-TAZOB 3.375GM 100 ML IV SCH ×2 (05:21→14:42)
[2020-02-26] MEDS: InsuLIN REG 1unit/0.01ml Soln (100units/ml) SC SCH ×2 (06:13→12:00)
[2020-02-26 09:00] VITALS: BP 103/63
[2020-02-26] MEDS: FAMOTIDINE (10MG/ML) 2ML VL IV SCH (10:13)
[2020-02-26] MEDS: FLUCONAZOLE 200MG/100ML 100 ML IV SCH (10:13)
[2020-02-26] MEDS: AMIODARONE HCL 200 MG TAB PO SCH (10:13)
[2020-02-26 13:00] VITALS: BP 124/71
[2020-02-26] MEDS: D5W 5% 1,000 ML IV SCH (14:42)
[2020-02-26] MEDS ORDERED: HYDROCORTISONE SOD SUCC 100 MG/2ML INJ VIAL IV SCH (22:00)
== END 2020-02-26 17:00 | DRG 870 ==
LOC: EDBD 12:52 → ER 12:52 → TELE 12:53 → ICU WEST 01-26 23:34 → DOU IN ICU 02-09 23:00 → TELE-CENTR 02-24 13:13 → TELE-WESTW 02-24 23:04
PROVIDERS: ADMIT Hospitalist; ATTEND Internal Medicine Geriatric Medicine
PROC: 5A1945Z Respiratory Ventilation, 24-96 Consecutive Hours (ICD-10-PCS; 2020-01-24)
PROC: 0BH17EZ Insertion of Endotracheal Airway into Trachea, Via Natural or Artificial Opening (ICD-10-PCS; 2020-01-24)
PROC: 02HV33Z Insertion of Infusion Device into Superior Vena Cava, Percutaneous Approach (ICD-10-PCS; 2020-01-25)
PROC: 5A12012 Performance of Cardiac Output, Single, Manual (ICD-10-PCS; 2020-01-26)
PROC: 0DH67UZ Insertion of Feeding Device into Stomach, Via Natural or Artificial Opening (ICD-10-PCS; 2020-01-26)
PROC: 5A1955Z Respiratory Ventilation, Greater than 96 Consecutive Hours (ICD-10-PCS; principal; 2020-01-27)
PROC: 0BH17EZ Insertion of Endotracheal Airway into Trachea, Via Natural or Artificial Opening (ICD-10-PCS; 2020-01-27)
PROC: 5A1D70Z Performance of Urinary Filtration, Intermittent, Less than 6 Hours Per Day (ICD-10-PCS; 2020-02-02)
PROC: 02HV33Z Insertion of Infusion Device into Superior Vena Cava, Percutaneous Approach (ICD-10-PCS; 2020-02-03)
PROC: B548ZZA Ultrasonography of Superior Vena Cava, Guidance (ICD-10-PCS; 2020-02-03)
PROC: 0B968ZZ Drainage of Right Lower Lobe Bronchus, Via Natural or Artificial Opening Endoscopic (ICD-10-PCS; 2020-02-04)
PROC: 5A1D70Z Performance of Urinary Filtration, Intermittent, Less than 6 Hours Per Day (ICD-10-PCS; 2020-02-05)
PROC: 5A09357 Assistance with Respiratory Ventilation, Less than 24 Consecutive Hours, Continuous Positive Airway Pressure (ICD-10-PCS; 2020-02-05)
PROC: 06HM33Z Insertion of Infusion Device into Right Femoral Vein, Percutaneous Approach (ICD-10-PCS; 2020-02-06)
PROC: 5A09357 Assistance with Respiratory Ventilation, Less than 24 Consecutive Hours, Continuous Positive Airway Pressure (ICD-10-PCS; 2020-02-06)
PROC: 5A09357 Assistance with Respiratory Ventilation, Less than 24 Consecutive Hours, Continuous Positive Airway Pressure (ICD-10-PCS; 2020-02-07)
PROC: 5A09357 Assistance with Respiratory Ventilation, Less than 24 Consecutive Hours, Continuous Positive Airway Pressure (ICD-10-PCS; 2020-02-08)
PROC: 5A09357 Assistance with Respiratory Ventilation, Less than 24 Consecutive Hours, Continuous Positive Airway Pressure (ICD-10-PCS; 2020-02-09)
PROC: 0T9B70Z Drainage of Bladder with Drainage Device, Via Natural or Artificial Opening (ICD-10-PCS; 2020-02-10)
PROC: 5A09357 Assistance with Respiratory Ventilation, Less than 24 Consecutive Hours, Continuous Positive Airway Pressure (ICD-10-PCS; 2020-02-10)
PROC: 5A1955Z Respiratory Ventilation, Greater than 96 Consecutive Hours (ICD-10-PCS; 2020-02-11)
PROC: 0BH17EZ Insertion of Endotracheal Airway into Trachea, Via Natural or Artificial Opening (ICD-10-PCS; 2020-02-11)
PROC: 3E0436Z Introduction of Nutritional Substance into Central Vein, Percutaneous Approach (ICD-10-PCS; 2020-02-11)
PROC: 30233N1 Transfusion of Nonautologous Red Blood Cells into Peripheral Vein, Percutaneous Approach (ICD-10-PCS; 2020-02-19)
DX: A41.9 Sepsis, unspecified organism (principal); J15.212 Pneumonia due to Methicillin resistant Staphylococcus aureus; J96.21 Acute and chronic respiratory failure with hypoxia; N17.0 Acute kidney failure with tubular necrosis; J96.22 Acute and chronic respiratory failure with hypercapnia; I50.23 Acute on chronic systolic (congestive) heart failure; R65.21 Severe sepsis with septic shock; G93.41 Metabolic encephalopathy; N18.6 End stage renal disease; J44.0 Chronic obstructive pulmonary disease with (acute) lower respiratory infection; J44.1 Chronic obstructive pulmonary disease with (acute) exacerbation; G93.1 Anoxic brain damage, not elsewhere classified; I48.20 Chronic atrial fibrillation, unspecified; N13.6 Pyonephrosis; Z99.11 Dependence on respirator [ventilator] status; I13.2 Hypertensive heart and chronic kidney disease with heart failure and with stage 5 chronic kidney disease, or end stage renal disease; J84.9 Interstitial pulmonary disease, unspecified; Z20.828 Contact with and (suspected) exposure to other viral communicable diseases; D69.6 Thrombocytopenia, unspecified; E66.01 Morbid (severe) obesity due to excess calories; N40.0 Benign prostatic hyperplasia without lower urinary tract symptoms; R31.9 Hematuria, unspecified; N36.5 Urethral false passage; E87.6 Hypokalemia; F17.200 Nicotine dependence, unspecified, uncomplicated; I25.10 Atherosclerotic heart disease of native coronary artery without angina pectoris; N48.83 Acquired buried penis; Z68.35 Body mass index [BMI] 35.0-35.9, adult; Z74.01 Bed confinement status; Y92.89 Other specified places as the place of occurrence of the external cause; Z86.14 Personal history of Methicillin resistant Staphylococcus aureus infection; Z99.2 Dependence on renal dialysis; Z83.3 Family history of diabetes mellitus; Z86.74 Personal history of sudden cardiac arrest; Z88.5 Allergy status to narcotic agent
CPT/HCPCS: 31622; 36415; 36600; 51702; 70450; 71045; 74018; 74176; 76705; 76775; 80048; 80053; 80061; 80074; 80076; 80202; 81001; 82040; 82140; 82550; 82728; 82805; 82962; 83036; 83605; 83615; 83735; 83880; 84100; 84132; 84443; 84478; 84484; 84550; 85025; 85379; 85610; 85652; 85730; 86141; 86703; 86704; 86706; 86803; 86850; 86900; 86901; 86920; 87040; 87070; 87077; 87081; 87086; 87088; 87186; 87205; 87340; 90935; 92610; 92950; 93005; 93306; 93886; 93970; 94002; 94003; 94640; 94660; 95819; 96365; 96366; 96375; 97110; 97163; 97530; 99291; A4618; G0378; J0131; J0171; J0330; J1100; J1335; J1450; J1642; J1815; J2185; J2250; J2543; J3480; J3490; J7060; J7131; P9047